=== PATIENT | female | born 1985 | race Hispanic/Latino ===

== ENCOUNTER 2024-08-04 17:01 | Emergency (ER) | payer SELFPAY ==
[~2024-08-04] VITALS: Ht 160 cm; Wt 108.4 kg
[2024-08-04 17:28] LABS: BASOPHILS # (AUTO) 0.01 K/uL (0.00-0.20); BASOPHILS % (AUTO) 0.1 % (0.0-5.0); HEMATOCRIT 38.3 % (36-48); IMMATURE GRANULOCYTE ABSOLUTE 0.05 K/uL (0-1); LYMPHOCYTES # (AUTO) 0.9 K/uL (1.0-4.8); MEAN CORPUSCULAR HEMOGLOBIN 26.6 pg (27.0-33.0); MEAN CORPUSCULAR HGB CONC 32.9 g/dL (32.0-36.0); MONOCYTES # (AUTO) 0.5 K/uL (0.1-1.0); MONOCYTES % (AUTO) 4.4 % (3.0-13.0); NEUTROPHILS # (AUTO) 10.2 K/uL (1.8-7.7); NEUTROPHILS % (AUTO) 87.1 % (40.0-77.0); PLATELET COUNT (AUTO) 221 K/uL (130-400); RED BLOOD CELL COUNT(AUTO) 4.73 MIL/uL (4.00-5.50); RED CELL DISTRIBUTION WIDTH 13.9 % (11.0-15.5); WHITE BLOOD COUNT (AUTO) 11.7 K/uL (4.8-10.8)
[2024-08-04 17:43] LABS: SARS-CoV-2, RNA, NAAT NEGATIVE SARS CoV-2 (NEGATIVE)
[2024-08-04 17:48] LABS: INFLUENZA TYPE A Negative For Type A (NEGATIVE); INFLUENZA TYPE B Negative For Type B (NEGATIVE)
[2024-08-04 17:51] LABS: CREATININE 0.8 mg/dL (0.5-1.0)
[2024-08-04 17:55] LABS: POTASSIUM 2.8 mmol/L (3.5-5.1)
[2024-08-04] MEDS: ondanSETRON 4MG INJ IVP ONE (19:13)
[2024-08-04] MEDS: acetaMINOPHEN 500 MG TABLET PO SCH (19:13)
[2024-08-04] MEDS: PoTASSium BIcarbonate/CIT AC 25 MEQ TABLET.EFF PO SCH (19:14)
[2024-08-04] MEDS: [UNRECOGNIZED DRUG - OTHER] IV SCH (19:14)
[2024-08-04 21:11] LABS: APPEARANCE,URINE CLEAR (CLEAR); BILIRUBIN,URINE NEGATIVE (NEGATIVE); COLOR,URINE LIGHT-YELLOW (YELLOW); GLUCOSE, URINE (UA) NEGATIVE (NEGATIVE); KETONES,URINE 20 mg/dL (NEGATIVE); LEUKOCYTE ESTERASE ,URINE NEGATIVE Leu/uL (NEGATIVE); NITRATE,URINE NEGATIVE (NEGATIVE); PH,URINE 6.5 (5.0-8.0); PROTEIN,URINE 20 mg/dL (NEGATIVE); UROBILINOGEN,URINE 0.2 mg/dL (0.2-1.0)
[2024-08-04 21:17] LABS: ADD UA MICROSCOPIC YES
[2024-08-04 21:18] LABS: HCG,QUALITATIVE URINE NEGATIVE (NEGATIVE)
[2024-08-04 21:20] LABS: BACTERIA,URINE RARE /HPF (None Seen); MUCUS,URINE RARE LPF (None Seen); SQUAMOUS EPITHELIAL CELL,UR RARE /HPF (0-2)
[2024-08-04 21:27] VITALS: TEMP 100.2
[2024-08-04] MEDS ORDERED: ONDA-243 PO (23:03)
[2024-08-04] MEDS ORDERED: CIPR500S4 PO (23:03)
[2024-08-04] MEDS ORDERED: METR-172 PO (23:03)
[2024-08-04] MEDS: metRONIDazole 500 MG TABLET PO SCH (23:16)
[2024-08-04] MEDS: ketOROlac 15MG/ML VIAL (15MG/ML) IV ONE (23:17)
[2024-08-04 23:29] VITALS: BP 112/65; PULSE 93; RESP 18; TEMP 99; O2SAT 96
== END 2024-08-04 23:30 | disposition home or self-care (01) ==
LOC: EDH 17:01
DX: K52.9 Noninfective gastroenteritis and colitis, unspecified (principal); E87.6 Hypokalemia; E86.0 Dehydration; K21.9 Gastro-esophageal reflux disease without esophagitis; E11.9 Type 2 diabetes mellitus without complications; E66.9 Obesity, unspecified; Z20.822 Contact with and (suspected) exposure to COVID-19; Z79.899 Other long term (current) drug therapy
CPT/HCPCS: 99285; 74176; 96374; 87635; 96361; 96375; 82550; 84484; 80048; 85025; 87040 ×2; 87880; 87804 ×2; 83605; 81001; 81025; 36415; J7030; J2405; J1885

== ENCOUNTER 2025-05-13 23:21 | Inpatient (IN) | payer BC ==
[~2025-05-13] VITALS: Ht 160 cm; Wt 98.5 kg
[~2025-05-13 23:21] MED LIST: CIPR500S4 PO; METR-172 PO; ONDA-243 PO
--- NOTE | 2025-05-13 23:35 | NUR ---
PT CARE ASSUMED AT THIS TIME
[2025-05-14] VITALS (7 sets, daily range): BP systolic 120–155; BP diastolic 62–98; PULSE 63–76; RESP 18–20; TEMP 97.6–99.5; O2SAT 95–98
[2025-05-14 00:10] LABS: IMMATURE GRANULOCYTE ABSOLUTE 0.07 K/uL (0-1); NUCLEATED RED BLOOD CELLS 0.0 % (0.0-0.19); PLATELET COUNT (AUTO) 308 K/uL (130-400); RED BLOOD CELL COUNT(AUTO) 4.61 MIL/uL (4.00-5.50); RED CELL DISTRIBUTION WIDTH 14.2 % (11.0-15.5); WHITE BLOOD COUNT (AUTO) 14.4 K/uL (4.8-10.8)
[2025-05-14] MEDS: LACTATED RINGERS 1000ML IV STA ×2 (00:13→02:24)
[2025-05-14 00:21] LABS: CREATININE 0.6 mg/dL (0.5-1.0); GLOMERULAR FILTR. RATE CALC 116.0 mL/min (>90); GLUCOSE,RANDOM 153.0 mg/dL (70-105); SODIUM SERUM 135.0 mmol/L (136-145); UREA NITROGEN, BLOOD 9.0 mg/dL (7-18)
--- NOTE | 2025-05-14 00:22 | ERN ---
General Chief Complaint: Abdominal Pain Stated Complaint: ABD PAIN N/V Time Seen by MD: 23:23 Source: patient History of Present Illness Initial Comments Patient comes in with abdominal pain. She had the same pain earlier this week and was seen in the hospital diagnosed with a ovarian cyst. The pain did improve but now it came back with a vengeance yesterday and today. The pain is substernal and comes and goes in waves. It is associated now with nausea and vomiting. Patient has been unable to keep anything down for the entire day and has had emesis times 12. She has not passed gas. She has not urinated. Prior surgical history is cholecystectomy and two C-sections. No fevers but positive chills Allergies: Coded Allergies: No Known Drug Allergies (Unverified Allergy, Unknown, 08/04/24) Home Meds Active Scripts Metronidazole (Metronidazole) 500 Mg Tablet, 1 TAB PO TID for 10 Days, #30 TAB 0 Refills Prov:TYLER WAGNER [employer] 08/04/24 Ciprofloxacin (Cipro) 500 Mg/5 Ml Briana.mc.rec, 500 MG PO BID for 7 Days, #14 TAB 0 Refills Prov:TYLER WAGNER [employer] 08/04/24 Ondansetron (Ondansetron Odt) 4 Mg Tab.rapdis, 4 MG PO Q6HPRN PRN for nausea, #15 TAB 0 Refills Prov:TYLER WAGNER [employer] 08/04/24 Past Medical History Past Medical History: Diabetes-Type II, GERD, Other Past Surgical History: Cholecystectomy, Social History Social History: Negative, Lives with family Female( History) LMP: Apr 17, 2025 Constitutional: (+) chills EENTM: (-) eye pain, (-) blurred vision, (-) tearing, (-) double vision, (-) ear pain, (-) ear discharge, (-) nose pain, (-) nose congestion, (-) throat pain, (-) Throat swelling, (-) mouth pain, (-) tooth pain, (-) mouth swelling, (-) other documentation Respiratory: (-) cough, (-) orthopnea, (-) short of breath, (-) stridor, (-) wheezing, (-) other documentation Cardiovascular: (-) chest pain, (-) edema, (-) palpitations, (-) syncope, (-) dyspnea on exertion, (-) other documentation Gastrointestinal/Abdominal: (+) nausea, (+) vomiting, (+) abdominal pain Genitourinary: (-) vaginal discharge, (-) vaginal bleeding, (-) dysuria, (-) frequency, (-) hematuria, (-) pain, (-) other documentation Musculoskeletal: (-) Neck pain, (-) back pain, (-) Flank Pain, (-) joint pain, (-) joint swelling, (-) muscle pain, (-) muscle stiffness, (-) gout, (-) other documentation Skin: (-) laceration, (-) contusion, (-) abrasion, (-) abscess, (-) rash, (-) change in color, (-) change in hair, (-) change in nails, (-) diaphoresis, (-) dryness, (-) other documentation Neuro: (-) altered mental status, (-) headache, (-) syncope, (-) paralysis, (-) numbness, (-) seizure, (-) pre-existing deficit, (-) tremors, (-) weakness, (-) dizziness, (-) slurred speech, (-) vertigo, (-) other documentation Physical Exam General Appearance: (+) moderate distress Orientation: (+) alert, (+) oriented x 3 Head/Face Trauma: No Eye: bilateral eye normal inspection, bilateral eye PERRL, bilateral eye EOMI Ear, Nose, Throat: (+) hearing grossly normal, (+) normal ENT inspection, (+) moist mucous membraine Neck: (+) normal inspection, (+) supple, (+) full range of motion, (+) no JVD Respiratory: (+) chest non-tender, (+) lungs clear, (+) well ventilated Heart: (+) regular, (+) no gallop Vascular: (+) no edema, (+) normal peripheral pulse, (+) no JVD Gastrointestinal: (+) soft, (+) bowel sound present, (+) tender, (+) rebound Breast Exam: (-) normal breast exam, (-) breast pain, (-) breast lump, (-) nipple discharge, (-) deferred, (-) other documentation Results Laboratory and Microbiology Lab and Micro Result Laboratory Tests Test 05/13/25 23:46 05/14/25 01:23 White Blood Count 14.4 K/uL (4.8-10.8) H Red Blood Count 4.61 MIL/uL (4.00-5.50) Hemoglobin 12.4 g/dL (12.0-16.0) Hematocrit 37.9 % (36-48) Mean Corpuscular Volume 82.2 fL (79-99) Mean Corpuscular Hemoglobin 26.9 pg (27.0-33.0) L Mean Corpuscular Hemoglobin Concent 32.7 g/dL (32.0-36.0) Red Cell Distribution Width 14.2 % (11.0-15.5) Platelet Count 308 K/uL (130-400) Mean Platelet Volume 10.0 fL (7.5-10.5) Immature Granulocyte % (Auto) 0.5 % (0-1) Neutrophils (%) (Auto) 84.7 % (40.0-77.0) H Lymphocytes (%) (Auto) 12.0 % (21.0-51.0) L Monocytes (%) (Auto) 2.6 % (3.0-13.0) L Eosinophils (%) (Auto) 0.1 % (0.0-8.0) Basophils (%) (Auto) 0.1 % (0.0-5.0) Neutrophils # (Auto) 12.2 K/uL (1.8-7.7) H Lymphocytes # (Auto) 1.7 K/uL (1.0-4.8) Monocytes # (Auto) 0.4 K/uL (0.1-1.0) Eosinophils # (Auto) 0.02 K/uL (0.00-0.70) Basophils # (Auto) 0.02 K/uL (0.00-0.20) Absolute Immature Granulocyte (auto 0.07 K/uL (0-1) Nucleated Red Blood Cells 0.0 % (0.0-0.19) Sodium Level 135 mmol/L (136-145) L Potassium Level 3.6 mmol/L (3.5-5.1) Chloride Level 99 mmol/L (101-111) L Carbon Dioxide Level 28 mmol/L (21-32) Blood Urea Nitrogen 9 mg/dL (7-18) Creatinine 0.6 mg/dL (0.5-1.0) Glomerular Filtration Rate Calc 116 mL/min (>90) Random Glucose 153 mg/dL (70-105) H Lactic Acid Level 1.9 mmol/L (0.8-2.5) Total Calcium 9.1 mg/dL (8.5-10.1) Total Bilirubin 0.4 mg/dL (0.2-1.0) Aspartate Amino Transf (AST/SGOT) 18 U/L (10-37) Alanine Aminotransferase (ALT/SGPT) 39 U/L (12-78) Alkaline Phosphatase 109 U/L (50-136) Total Protein 7.8 g/dL (6.0-8.3) Albumin 3.7 g/dL (3.5-5.0) Urine Color LIGHT-YELLOW (YELLOW) Urine Appearance CLEAR (CLEAR) Urine pH 8.5 (5.0-8.0) H Urine Specific Ross 1.022 (1.001-1.031) Urine Protein 10 mg/dL (NEGATIVE) H Urine Glucose (UA) NEGATIVE mg/dL (NEGATIVE) Urine Ketones 60 mg/dL (NEGATIVE) H Urine Occult Blood NEGATIVE (NEGATIVE) Urine Nitrate NEGATIVE (NEGATIVE) Urine Bilirubin NEGATIVE mg/dL (NEGATIVE) Urine Urobilinogen 0.2 mg/dL (0.2-1.0) Urine Leukocyte Esterase NEGATIVE Alonso/uL Urine RBC 11-25 /HPF (0-1) H Urine WBC 2-5 /HPF (0-1) H Urine Squamous Epithelial Cells RARE /HPF (0-2) Urine Bacteria None /HPF (None Seen) Urine HCG, Qualitative NEGATIVE (NEGATIVE) MDM MDM: Differential diagnosis: Small-bowel obstruction, ureteral stone, UTI, dehydration, gastroenteritis Rationale: Tests considered and ordered secondary to shared decision making include: Previous outside records reviewed: Old ER visits. Risk of complication and/or morbidity or mortality of patient management: None Medications-Per medication reconciliation Need for hospitalization: Patient does meet criteria for hospitalization. Need for emergency major/minor surgery: No There are no social concerns with this patient. Prescription drug management Prescriptions will include symptomatic care Patient's prior external medical records from other ER visits were reviewed by me as indicated. Prior testing and results from previous visits were reviewed. Prior tests were taken into account with medical decision making and resource utilization, independent historian/historians were used to obtain complete medical history. I independently interpreted the test that were performed, results were reviewed by me and considered findings on radiology if ordered. Patient's urine analysis is negative for infection. CBC shows an elevated white blood cell count chemistry panel shows dehydration as does the urine analysis. CT scan shows possible inflammation surrounding the duodenum as well as a transition in bowel thickness at the junction of the 4th portion of the duodenum and the jejunostomy. While in the CT scan the patient required an additional dose of Zofran. The patient currently can not taken any liquids I am admitting her for dehydration and possible small bowel obstruction. Discussed the patient with the hospitalist and he agrees. ED Course Orders Procedure Category Date Status Time 12 Lead Ekg Tracing- EKG 05/13/25 Logged Technical 23:56 Comprehensive LAB 05/13/25 Complete Metabolic Panel 23:56 Cbc With Differential LAB 05/13/25 Complete 23:56 Lactic Acid LAB 05/13/25 Complete 23:56 ,Urine Test LAB 05/13/25 Complete 23:56 Urinalysis Profile LAB 05/13/25 Complete 23:56 Ct Abdomen/Pelvis CT 05/13/25 Taken W/Wo Contras 23:56 Ondansetron 4mg Inj PHA 05/14/25 Complete (Zofran 4mg Inj) 00:00 Lactated Ringers PHA 05/13/25 Complete 1000ml (Lactated 23:56 Morphine 2mg Syg PHA 05/14/25 Complete (Morphine 2mg Syg) 00:00 Lactated Ringers PHA 05/14/25 Complete 1000ml (Lactated 01:19 Iohexol (Omnipaque) PHA 05/14/25 Complete 01:26 Ondansetron 4mg Inj PHA 05/14/25 Complete (Zofran 4mg Inj) 02:30 Morphine 2mg Syg PHA 05/14/25 Complete (Morphine 2mg Syg) 03:00 Current Medications Medications (Trade) Dose Ordered Sig/Gisela Route PRN Reason Start Time Stop Time Status Last Admin Dose Admin Iohexol (Omnipaque) 75 ml STK-MED ONCE IV 05/14/25 01:26 05/14/25 01:27 DC Lactated Ringer's (Lactated Ringers 1000ml) 1,000 ml BOLUS STAT IV 05/14/25 01:19 05/14/25 01:20 DC 05/14/25 02:24 Lactated Ringer's (Lactated Ringers 1000ml) 1,000 ml BOLUS STAT IV 05/13/25 23:56 05/14/25 00:00 DC 05/14/25 00:13 Morphine Sulfate (morPHINE 2MG SYG) 2 mg ONCE ONCE IVP 05/14/25 00:00 05/14/25 00:01 DC 05/14/25 00:09 Morphine Sulfate (morPHINE 2MG SYG) 2 mg ONCE ONCE IVP 05/14/25 03:00 05/14/25 03:01 DC 05/14/25 02:50 Ondansetron HCl (zoFRAN 4MG INJ) 4 mg ONCE ONCE IVP 05/14/25 00:00 05/14/25 00:01 DC 05/14/25 00:08 Ondansetron HCl (zoFRAN 4MG INJ) 4 mg ONCE ONCE IVP 05/14/25 02:30 05/14/25 02:31 DC 05/14/25 02:24 Vital Signs Date Time Temp Pulse Resp B/P (MAP) Pulse Ox O2 Delivery O2 Flow Rate FiO2 05/13/25 23:56 97.7 70 17 143/70 98 Room Air* 0 21 05/13/25 23:22 97.9 73 20 160/89 99 Room Air DX & DISP Disposition: Inpatient Departure Impression: Primary Impression: Acute gastroenteritis Additional Impressions: Dehydration, Small bowel obstruction Condition: Stable Referrals: NONE (PCP) MARIPOSA URIAS MD May 14, 2025 00:22
[2025-05-14 00:26] LABS: ASPARTATE AMINOTRANSFERASE 18.0 U/L (10-37); TOTAL PROTEIN, SERUM 7.8 g/dL (6.0-8.3)
[2025-05-14] MEDS ORDERED: IOHEXOL-350 75 ML VIAL IV ONE (01:26)
[2025-05-14 01:34] LABS: APPEARANCE,URINE CLEAR (CLEAR); GLUCOSE, URINE (UA) NEGATIVE (NEGATIVE); LEUKOCYTE ESTERASE ,URINE NEGATIVE Leu/uL (NEGATIVE); NITRATE,URINE NEGATIVE (NEGATIVE); OCCULT BLOOD,URINE NEGATIVE (NEGATIVE)
[2025-05-14 01:35] LABS: ADD UA MICROSCOPIC YES
[2025-05-14 01:40] LABS: SQUAMOUS EPITHELIAL CELL,UR RARE /HPF (0-2)
[2025-05-14 01:57] LABS: HCG,QUALITATIVE URINE NEGATIVE (NEGATIVE)
--- NOTE | 2025-05-14 04:11 | HP ---
History of Present Illness Reason for Visit: abdominal pain History of Present Illness Ms. Pulido is a 39-year-old female that was seen and examined today on 05/14/2025. Patient is a good historian of personal health. Patient states that she came to the emergency department with a chief complaint of abdominal pain. Onset was one week ago. Location is bilateral upper quadrants. Duration is on and off. Character is described as a burning pain or a knot in the stomach. There was no alleviating factors. Symptoms are aggravated by eating. Patient reports associated nausea and vomiting times 15 episodes. Today in the emergency department WBCs 14.4, left shift neutrophils 84.7%, urinalysis unremarkable, chemistry unremarkable, CT of abdomen and pelvis is pending radiology report although preliminary read by emergency physician is suspicious for small bowel obstruction. For this reason emergency room request that patient be admitted. If CT is positive for small-bowel obstruction we will consider inserting NG tube and placing patient on low intermittent wall suction as well as consult for General surgery Service Past Medical History ADDITIONAL PAST MEDICAL HISTORY: [Denies] SOCIAL HISTORY: [Negative for tobacco use. Patient drinks alcohol once a month usually 6-8 beers that are 12 oz each, patient admits to daily marijuana use. Patient denies any other illegal drug use. Patient is typically independent of all her ADLs. Patient denies difficulty paying her bills.] SURGICAL HISTORY: [Cholecystectomy, section] Review of Systems General: No Fever, No Chills, No Night Sweats, No Fatigue, No Malaise, No Appetite, No Other HEENT: No Head Aches, No Visual Changes, No Eye Pain, No Ear Pain, No Dysphasia, No Sinus Congestion, No Post Nasal Drip, No Sore Throat, No Other Pulmonary: No Dyspnea, No Cough, No Pleuritic Chest Pain, No Other Cardiovascular: No: Chest Pain, Palpitations, Orthopnea, Paroxysmal Noc. Dyspnea, Edema, Lt Headedness, Other Gastrointestinal: Nausea, Vomiting, Abdominal Pain; No: Diarrhea, Constipation, Melena, Hematochezia, Other Genitourinary: No Dysuria, No Frequency, No Incontinence, No Hematuria, No Retention, No Other Musculoskeletal: No: other, neck pain, shoulder pain, arm pain, back pain, hand pain, leg pain, foot pain Skin: No Urticaria, No Rash, No Other Neurological: No: Weakness, Numbness, Incoordination, Change in speech, Confusion, Seizures, Other Allergies: Coded Allergies: No Known Drug Allergies (Unverified Allergy, Unknown, 08/04/24) Scheduled Ciprofloxacin (Cipro), 500 MG PO BID Metronidazole (Metronidazole), 1 TAB PO TID Scheduled PRN Ondansetron (Ondansetron Odt), 4 MG PO Q6HPRN PRN for nausea Exam Vital Signs Vital Signs Date Time Temp Pulse Resp B/P (MAP) Pulse Ox O2 Delivery O2 Flow Rate FiO2 05/13/25 23:56 97.7 70 17 143/70 98 Room Air* 0 21 General Appearance: Alert, Oriented X3, Cooperative, mild distress HEENT: Atraumatic, EOMI Respiratory: Clear to auscultation, Normal air movement, NL respiratory effort Cardiovascular: Regular rate, Regular rhythm, Normal S1, Normal S2 Abdominal: Normal bowel sounds, Soft, No tenderness Extremities: No edema Skin: No significant lesion Neuro: Normal gait, Normal speech, Sensation intact, Cranial nerves 3-12 NL Psych/Mental Status: Mental status NL, Mood NL, Thoughts/Content NL Assessment/Plan ASSESSMENT: [ Intractable abdominal pain, POA Intractable nausea and vomiting, POA Suspected small bowel obstruction, POA Suspected cannabinoid hyperemesis syndrome, POA] PLAN: [ Admit patient to medical floor as inpatient status. Keep patient NPO. Lactated Ringer's at 100 mL/HR. As-needed Zofran. Phenergan 25 mg IM times 1. As needed analgesia with morphine. Follow up with the CT of abdomen and pelvis results. Consider inserting NG tube, intermittent wall suction, and general surgery consult if findings positive for small bowel obstruction. Consult patient on marijuana use cessation. GI prophylaxis, famotidine DVT prophylaxis, Alex's and SCDs. Consider initiating anticoagulation if CT findings are negative. ADVANCED CARE PLANNING 1. Which of the following were discussed? Hospice Care - Yes Therapeutic options - yes Advance Directives - Yes - patient states she does not have any advance directives in place at this time, however her sister, Irene can make decisions for her if she becomes unable. Other discussions - patient wishes to remain a full code at this time 2. Discussed with who? Patient 3. Voluntary nature of this service was explained to the patient? Yes 4. Amount of time spent - ___16 minutes____ 5. Reviewed by Physician? (if this service was performed by NPP) Yes This document was generated in part using voice recognition software, occasional wrong word or sound alike substitutions may have occurred due to the inherent limitations of voice recognition software. Read the chart carefully and recognize using context, where the substitutions have occurred. Although every effort was made to edit the content, radiology transcriptionist and typing errors may occur ATTESTATION BY PHYSICIAN I have seen and examined the patient. I reviewed the documentation, medical decision making, and treatment plan as noted by the mid-level provider above. I agree with the findings and plan of care. [facility] May 14, 2025 04:10
[2025-05-14] MEDS ORDERED: PROMETHAZINE HCL 25 MG/ML 1ML AMPULE IM ONE (04:30)
--- NOTE | 2025-05-14 04:55 | NUR ---
ATTEMPT TO GIVE REPORT AT THIS TIME. NOT SUCCESSFUL.
--- NOTE | 2025-05-14 05:00 | NUR ---
REPORT GIVEN TO DEBBY ORTIZ AT THIS TIME
[2025-05-14] MEDS: LACTATED RINGERS 1000ML 1,000 ML IV SCH (05:06)
--- NOTE | 2025-05-14 08:07 | EKG ---
[facility] Test Date: 2025-05-14 Test Time: 00:04:57 Pat Name: FARTUN BANUELOS Department: [facility] Room: 320 1 Gender: F Registered Client Associate: [id number] : 1985 Requested By: MARIPOSA URIAS Order Number: [id number] Reading MD: Azael Pinto Measurements Intervals [place] Rate: 66 P: 29 ID: [id number] QRS: 31 QRSD: 68 T: 32 QT: 420 QTc: 439 Interpretive Statements Sinus rhythm Low voltage, precordial leads No previous ECG available for comparison Electronically Signed On 05-14-2025 16:04:21 CDT by Azael Pinto Please click the below link to view image of tracing.
[2025-05-14] MEDS: FAMOTIDINE 20MG VIAL IV SCH (08:49)
--- NOTE | 2025-05-14 10:20 | NUR ---
ROUND DR. ANUJA PETERS AT BEDSIDE. ANSWERED PTS QUESTIONS. INFORMED PT WE ARE WAITING FOR CT OF ABD/ PELVIS FOR ANY FURTHER ACTIONS. GAVE OKAY TO GIVE ICE CHIPS FOR NOW. NO FURTHER ORDERS AT THIS TIME.
[2025-05-14 10:51] LABS: AMPHET/METH SCREEN,URINE NEGATIVE (NEGATIVE); BARBITURATE SCREEN, URINE NEGATIVE (NEGATIVE); CANNABINOID SCREEN,URINE POSITIVE (NEGATIVE); COCAINE SCREEN,URINE NEGATIVE (NEGATIVE)
--- NOTE | 2025-05-14 17:50 | NUR ---
INITIAL/DCP HOME Met w pt this afternoon to discuss dcp. Pt lives w her parents/children & sister. Prior to admission pt was independent w ambulation and ADLs. She does not own any DME or receive services. Pt does not have a PCP. Her preferred pharmacy is [facility]. Pt works fulltime and is able to drive herself where needed. Discharge goal is to return home. She denies any insecurities with food, alf, and/or utilities. Addendum: 05/14/25 at 1752 by ANNY GOLDBERG CM Amended: Links added.
--- NOTE | 2025-05-14 21:51 | HMCIMG ---
EXAM: CT Abdomen and Pelvis with and without IV contrast CLINICAL HISTORY: sbo TECHNIQUE: Axial computed tomography images of the abdomen and pelvis with and without intravenous contrast. CT scan performed according to ALARA. Automated exposure control used during exam. CONTRAST: with and without intravenous contrast. COMPARISON: CT images from August 04, 2024 FINDINGS: Lung bases are clear. Mild hepatomegaly; the right hepatic lobe measures up to 17.2 cm in the craniocaudal dimension. Hepatic steatosis. The gallbladder is surgically absent. Bilateral adrenal glands, spleen, and pancreas are within normal limits. Punctate nonobstructing calculus within the inferior pole of the right kidney. Kidneys are otherwise unremarkable. Bowel loops are normal in caliber without evidence of obstruction, ileus, or obvious bowel wall thickening. There is colonic diverticulosis without evidence for diverticulitis. The appendix is normal. Bladder and pelvic organs demonstrate appropriate CT appearances. There is no ascites or lymphadenopathy. Opacified abdominal and pelvic vessels are patent. There is no acute or suspicious osseous abnormality. IMPRESSION: 1. No acute intraabdominal or pelvic pathology. Please see above for additional details. /[place]
--- NOTE | 2025-05-14 23:59 | PN ---
[facility] PROGRESS NOTE Date of Service: May 14, 2025 Time of Service: 23:59 SUBJECTIVE: 05/15/25: The patient was examined at the bedside today. She reports persistent nausea and experienced approximately 10 episodes of vomiting yesterday, though no vomiting has occurred today. She describes epigastric abdominal pain, cramping in nature, with a sensation like a knot in her stomach. She remains NPO. The patient reports having a bowel movement yesterday. She typically experiences constipation but, over the past two weeks, has had intermittent nausea, vomiting, and episodes of diarrhea. She denies any history of alcohol use, hematochezia, hematemesis, melena. She was evaluated at [facility] last week for similar symptoms and was discharged with the diagnosis of vomiting and an ovarian cyst. She was discharged with prescriptions for dicyclomine and ondansetron (Zofran). She reports not eating for the first four days after discharge, then consuming light meals over the past two days, which she has not tolerated. She also has a chronic history of intermittent heartburn. She has insurance now about since a year but currently does not have a primary care provider. Laboratory findings today include WBC 14.4 with neutrophil predominance (84.7%), Sodium 135, Chloride 99, UA showed urine pH 8.5, positive ketones, and urine RBC 1125/hpf. CT abdomen and pelvis showed mild hepatomegaly with hepatic steatosis, surgically absent gallbladder and punctate nonobstructing calculus within inferior pole of the right kidney, colonic diverticulosis, otherwise negative. Plan is to continue IV fluids and maintain NPO status until the symptoms improves. REVIEW OF SYSTEMS CONSTITUTIONAL: Denies fevers, chills, or night sweats. No unintentional weight loss reported. NEUROLOGICAL: Denies headache, amaurosis fugax, motor weakness, sensory deficit, vertigo/spinning sensation, gait abnormalities, or tremors. ENT: No hearing loss, otalgia, otorrhea, rhinitis, rhinorrhea, hoarseness, or sore throat. CARDIOVASCULAR: Denies any exertional angina, dyspnea on exertion, orthopnea, paroxysmal nocturnal dyspnea, palpitations, life-threatening arrhythmias, claudication. PULMONARY: Denies any shortness of breath, cough, phlegm/sputum, hemoptysis, pleuritic chest pain. SLEEP: Denies morning headaches, daytime somnolence or napping. Denies d ifficulty falling asleep, staying asleep, waking from sleep. Denies knowledge of snoring. Gastrointestinal: Reports nausea, vomiting (10 episodes yesterday, none today), epigastric abdominal pain with cramping, intermittent diarrhea, constipation, and chronic heartburn. GENITOURINARY: Denies frequency, urgency, nocturia, hematuria or incontinence (Storage/Irritative symptoms.) Low urinary stream, straining to void, urinary intermittency or hesitancy, splitting of the voiding stream, terminal dribbling. PHYSICAL EXAM GENERAL APPEARANCE: The patient is awake, alert, and oriented, in no acute cardiopulmonary distress. HEENT: Face is symmetric. Pupils are equal and reactive. Extraocular movements are intact. NECK: Supple. No JVD. No thyromegaly. No submental, submandibular, pre- /postauricular, occipital or supraclavicular lymphadenopathy. CHEST: Normal chest expansion. No Telemetry. LUNGS: Absence of any rales, rhonchi or any wheezing. CARDIOVASCULAR: Regular. S1 and S2 normal. No appreciable rubs, murmurs or gallops. Abdomen: Soft, non-distended, with tenderness to palpation in the epigastric and supraumbilical regions; no rebound tenderness or guarding noted. : Deferred. No [place]. EXTREMITIES: Non-edematous and not cyanotic. No clubbing. Good capillary refill. SKIN: No skin breakdown. Vital Signs (last 8hr) Date Time Temp Pulse Resp B/P (MAP) Pulse Ox O2 Delivery O2 Flow Rate FiO2 05/14/25 20:00 95 Room Air* 0 21 05/14/25 19:00 99.5 71 20 129/68 95 Room Air 05/14/25 16:00 98.4 64 18 120/87 96 LABS: Laboratory: Test 05/14/25 10:24 05/14/25 08:57 05/14/25 01:23 05/13/25 23:46 Range/Units Urine Opiates Screen NEGATIVE NEGATIVE Urine Barbiturates Screen NEGATIVE NEGATIVE Urine Phencyclidine Screen NEGATIVE NEGATIVE Urine Amphetamines Screen NEGATIVE NEGATIVE Urine Benzodiazepines Screen NEGATIVE NEGATIVE Urine Cocaine Screen NEGATIVE NEGATIVE Urine Marijuana (THC) Screen POSITIVE H NEGATIVE Total Creatine Kinase 47 # 21-232 U/L Lipase 31 16-77 U/L Urine Color LIGHT-YELLOW YELLOW Urine Appearance CLEAR CLEAR Urine pH 8.5 H 5.0-8.0 Urine Specific [place] 1.022 1.001-1.031 Urine Protein 10 H NEGATIVE mg/dL Urine Glucose (UA) NEGATIVE NEGATIVE mg/dL Urine Ketones 60 H NEGATIVE mg/dL Urine Occult Blood NEGATIVE NEGATIVE Urine Nitrate NEGATIVE NEGATIVE Urine Bilirubin NEGATIVE NEGATIVE mg/dL Urine Urobilinogen 0.2 0.2-1.0 mg/dL Urine Leukocyte Esterase NEGATIVE NEGATIVE Alonso/uL Urine RBC 11-25 H 0-1 /HPF Urine WBC 2-5 H 0-1 /HPF Urine Squamous Epithelial Cells RARE 0-2 /HPF Urine Bacteria None None Seen /HPF Urine HCG, Qualitative NEGATIVE NEGATIVE White Blood Count 14.4 H 4.8-10.8 K/uL Red Blood Count 4.61 4.00-5.50 MIL/uL Hemoglobin 12.4 12.0-16.0 g/dL Hematocrit 37.9 36-48 % Mean Corpuscular Volume 82.2 79-99 fL Mean Corpuscular Hemoglobin 26.9 L 27.0-33.0 pg Mean Corpuscular Hemoglobin Concent 32.7 32.0-36.0 g/dL Red Cell Distribution Width 14.2 11.0-15.5 % Platelet Count 308 130-400 K/uL Mean Platelet Volume 10.0 7.5-10.5 fL Immature Granulocyte % (Auto) 0.5 0-1 % Neutrophils (%) (Auto) 84.7 H 40.0-77.0 % Lymphocytes (%) (Auto) 12.0 L 21.0-51.0 % Monocytes (%) (Auto) 2.6 L 3.0-13.0 % Eosinophils (%) (Auto) 0.1 0.0-8.0 % Basophils (%) (Auto) 0.1 0.0-5.0 % Neutrophils # (Auto) 12.2 H 1.8-7.7 K/uL Lymphocytes # (Auto) 1.7 1.0-4.8 K/uL Monocytes # (Auto) 0.4 0.1-1.0 K/uL Eosinophils # (Auto) 0.02 0.00-0.70 K/uL Basophils # (Auto) 0.02 0.00-0.20 K/uL Absolute Immature Granulocyte (auto 0.07 0-1 K/uL Nucleated Red Blood Cells 0.0 0.0-0.19 % Sodium Level 135 L 136-145 mmol/L Potassium Level 3.6 3.5-5.1 mmol/L Chloride Level 99 L 101-111 mmol/L Carbon Dioxide Level 28 21-32 mmol/L Blood Urea Nitrogen 9 7-18 mg/dL Creatinine 0.6 0.5-1.0 mg/dL Glomerular Filtration Rate Calc 116 >90 mL/min Random Glucose 153 H 70-105 mg/dL Lactic Acid Level 1.9 0.8-2.5 mmol/L Total Calcium 9.1 8.5-10.1 mg/dL Total Bilirubin 0.4 0.2-1.0 mg/dL Aspartate Amino Transf (AST/SGOT) 18 10-37 U/L Alanine Aminotransferase (ALT/SGPT) 39 12-78 U/L Alkaline Phosphatase 109 50-136 U/L Total Protein 7.8 6.0-8.3 g/dL Albumin 3.7 3.5-5.0 g/dL Current Medications Medications (Trade) Dose Ordered Sig/Gisela Route PRN Reason Start Time Stop Time Status Last Admin Dose Admin Acetaminophen (TYLenol 650MG SUPPOSITORY) 650 mg Q6H PRN RC MILD PAIN (1-3) 05/14/25 04:30 06/13/25 04:29 Enoxaparin Sodium (Lovenox) 30 mg DAILY SQ 05/15/25 09:00 06/14/25 08:59 Famotidine (Pepcid 20mg Vial) 20 mg DAILY IV 05/14/25 09:00 06/13/25 08:59 05/14/25 08:49 20 MG Hydralazine HCl (APRESOLine 20MG INJ) 10 mg Q6H PRN IV For:SBP above 160;DBP above 90 05/14/25 04:30 06/13/25 04:29 Lactated Ringer's 1,000 ml @ 100 mls/hr Q10H IV 05/14/25 04:30 06/13/25 04:29 05/14/25 16:29 100 MLS/HR Lactated Ringer's (Lactated Ringers 1000ml) 1,000 ml BOLUS STAT IV 05/14/25 01:19 05/14/25 01:20 DC 05/14/25 02:24 1,000 ML Lactated Ringer's (Lactated Ringers 1000ml) 1,000 ml BOLUS STAT IV 05/13/25 23:56 05/14/25 00:00 DC 05/14/25 00:13 1,000 ML Magnesium Sulfate 50 ml @ 0 mls/hr PROTOCOL PRN IV As needed 05/14/25 19:00 06/13/25 18:59 Morphine Sulfate (morPHINE 2MG SYG) 2 mg Q4H PRN IVP SEVERE PAIN (7-10) 05/14/25 04:30 05/21/25 04:29 05/14/25 12:56 2 MG Ondansetron HCl (zoFRAN 4MG INJ) 4 mg Q6H PRN IV NAUSEA/VOMITING 05/14/25 04:30 06/13/25 04:29 05/14/25 13:03 4 MG Potassium Chloride 100 ml @ 50 mls/hr AD PRN IV POTASSIUM PROTOCOL 05/14/25 19:00 06/13/25 18:59 05/14/25 18:46 50 MLS/HR DIAGNOSTICS / RADIOLOGY: [place] [address] IMAGING REPORT Signed PATIENT: FARTUN BANUELOS MR#: [id number] : 1985 SEX: F AGE: 39 LOCATION: [facility] ORDER 57 STATUS: ADM IN REPORT#: [id number] SERVICE 55 REASON: sbo ORDERING PHYSICIAN: MARIPOSA URIAS MD PROCEDURE: ABD PELWWO - CT ABDOMEN/PELVIS W/WO CONTRAS EXAM: CT Abdomen and Pelvis with and without IV contrast CLINICAL HISTORY: sbo TECHNIQUE: Axial computed tomography images of the abdomen and pelvis with and without intravenous contrast. CT scan performed according to ALARA. Automated exposure control used during exam. CONTRAST: with and without intravenous contrast. COMPARISON: CT images from August 04, 2024 FINDINGS: Lung bases are clear. Mild hepatomegaly; the right hepatic lobe measures up to 17.2 cm in the craniocaudal dimension. Hepatic steatosis. The gallbladder is surgically absent. Bilateral adrenal glands, spleen, and pancreas are within normal limits. Punctate nonobstructing calculus within the inferior pole of the right kidney. Kidneys are otherwise unremarkable. Bowel loops are normal in caliber without evidence of obstruction, ileus, or obvious bowel wall thickening. There is colonic diverticulosis without evidence for diverticulitis. The appendix is normal. Bladder and pelvic organs demonstrate appropriate CT appearances. There is no ascites or lymphadenopathy. Opacified abdominal and pelvic vessels are patent. There is no acute or suspicious osseous abnormality. IMPRESSION: 1. No acute intraabdominal or pelvic pathology. Please see above for additional details. /[place] DICTATED BY: KENDY WILLOUGHBY Jr., MD DATE: 05/14/252250 ELECTRONICALLY SIGNED BY: KENDY WILLOUGHBY Jr., MD DATE: 05/14/252250 ASSESSMENT: Possible infectious or inflammatory gastrointestinal process, POA Intractable nausea and vomiting, POA Colonic diverticulosis POA Hepatic steatosis POA Right nephrolithiasis POA Suspected cannabinoid hyperemesis syndrome, POA Class II obesity (BMI 38.5 kg/m) PLAN: The patient remains admitted on the medical surgical floor. Possible infectious or inflammatory gastrointestinal process, POA Intractable nausea and vomiting, POA * CT abdomen/pelvis negative for small bowel obstruction; notable for colonic diverticulosis, hepatic steatosis, and a punctate nonobstructing calculus in the inferior pole of the right kidney. * The patient did not tolerate ice chips, with worsening nausea following intake. Will maintain NPO status at present and re-evaluate tolerance tomorrow. * Continue intravenous fluid hydration with LR 100 cc/hour. * Ondansetron PRN for nausea. * Diagnostic workup initiated: ESR, CRP, fecal leukocytes, fecal lactoferrin, stool gastrointestinal pathogen PCR panel, stool H. pylori antigen, stool culture, and C. difficile toxin assay. Samples are yet to get collected. Follow up with the results when available. Suspected cannabinoid hyperemesis syndrome, POA * The patient reports occasional marijuana use for relief of pain and anxiety. She was counseled in detail regarding the potential long-term consequences and risks associated with marijuana use disorder. DVT prophylaxis: Lovenox 30 mg subQ daily. GI prophylaxis: Famotidine 20 mg daily IV Replace electrolytes as needed per protocol. P.r.n. medication: Zofran4 mg q.6 for nausea/vomiting, Tylenol 650 mg q.6 for mild pain, morphine q.4 for severe pain. The patient does not take any home medications. Given the patients leukocytosis, inflammatory markers will be obtained, and antibiotic therapy will be initiated if leukocytosis persists and clinical suspicion for infection remains. Dietary advancement to clear liquids will be considered once nausea improves. If symptoms persist, consultation with Gastroenterology and General Surgery will be considered for further evaluation. AM Labs: CBC, BMP, inflammatory markers, magnesium, phosphorus ATTESTATION BY PHYSICIAN I have seen and examined the patient. I reviewed the documentation, medical decision making, and treatment plan as noted by the resident provider above. I agree with the findings and plan of care. Nadir Morgan MD, MANALI MD May 14, 2025 23:59
[2025-05-15] VITALS (8 sets, daily range): BP systolic 121–155; BP diastolic 64–89; PULSE 60–86; RESP 19–20; TEMP 97.8–98.7; O2SAT 96–99
[2025-05-15 06:30] LABS: IMMATURE GRANULOCYTE ABSOLUTE 0.02 K/uL (0-1); NUCLEATED RED BLOOD CELLS 0.0 % (0.0-0.19); PLATELET COUNT (AUTO) 289 K/uL (130-400); RED BLOOD CELL COUNT(AUTO) 4.60 MIL/uL (4.00-5.50); RED CELL DISTRIBUTION WIDTH 14.4 % (11.0-15.5); WHITE BLOOD COUNT (AUTO) 9.1 K/uL (4.8-10.8)
[2025-05-15 06:38] LABS: CREATININE 0.8 mg/dL (0.5-1.0); GLOMERULAR FILTR. RATE CALC 95.0 mL/min (>90); GLUCOSE,RANDOM 92.0 mg/dL (70-105); PHOSPHORUS 2.9 mg/dL (2.5-4.9); SODIUM SERUM 141.0 mmol/L (136-145); UREA NITROGEN, BLOOD 8.0 mg/dL (7-18)
--- NOTE | 2025-05-15 09:10 | NUR ---
ABDOMINAL PAIN patient reporting abdominal pain 10/10, and shortness of breath. Epigastric pain and unrelieved by morphine. Dr. Randall notified about sudden pain and shortness of breath, per resident her and Dr. Hernandez will be rounding shortly to assess prior to ordering any treatments.
[2025-05-15] MEDS: PROMETHAZINE HCL 25 MG/ML 1ML AMPULE IM ONE (09:59)
[2025-05-15] MEDS: ENOXAPARIN SODIUM 30 MG/0.3 ML SQ SCH (10:07)
[2025-05-15] MEDS: MAGNESIUM 2GM PREMIX 50ML 50 ML IV PRN (10:08)
--- NOTE | 2025-05-15 10:38 | HMCIMG ---
EXAM: CR Chest, 1 View. CLINICAL HISTORY: SHORTNESS OF BREATH COMPARISON: None provided. FINDINGS: LUNGS: The lungs show no infiltrate or other acute finding. PLEURAL SPACES: No evidence of pleural effusion or pneumothorax. MEDIASTINUM: Cardiac size and mediastinal contours within normal limits. BONES: No aggressive appearing osseous lesion seen. IMPRESSION: No acute cardiopulmonary pathology is evident. /[place]
[2025-05-15] MEDS: DICYCLOMINE 20MG (10MG/ML) AMP IM ONE (11:30)
--- NOTE | 2025-05-15 11:36 | PN ---
[facility] PROGRESS NOTE Date of Service: May 15, 2025 Time of Service: 11:13 SUBJECTIVE: 05/14/25: The patient was examined at the bedside today. She reports persistent nausea and experienced approximately 10 episodes of vomiting yesterday, though no vomiting has occurred today. She describes epigastric abdominal pain, cramping in nature, with a sensation like a knot in her stomach. She remains NPO. The patient reports having a bowel movement yesterday. She typically experiences constipation but, over the past two weeks, has had intermittent nausea, vomiting, and episodes of diarrhea. She denies any history of alcohol use, hematochezia, hematemesis, melena. She was evaluated at [facility] last week for similar symptoms and was discharged with the diagnosis of vomiting and an ovarian cyst. She was discharged with prescriptions for dicyclomine and ondansetron (Zofran). She reports not eating for the first four days after discharge, then consuming light meals over the past two days, which she has not tolerated. She also has a chronic history of intermittent heartburn. She has insurance now about since a year but currently does not have a primary care provider. Laboratory findings today include WBC 14.4 with neutrophil predominance (84.7%), Sodium 135, Chloride 99, UA showed urine pH 8.5, positive ketones, and urine RBC 1125/hpf. CT abdomen and pelvis showed mild hepatomegaly with hepatic steatosis, surgically absent gallbladder and punctate nonobstructing calculus within inferior pole of the right kidney, colonic diverticulosis, otherwise negative. Plan is to continue IV fluids and maintain NPO status until the symptoms improves. 05.15.25: The patient was examined today in room no-320. She reports acute onset of epigastric pain described as cramping in nature. She has been NPO since Thursday and is currently not actively vomiting but has persistent nausea with frequent retching episodes that started around 7:00 a.m. today approximately 1 h our after symptom onset, she developed shortness of breath and sharp pain in the epigastrium. The patient appears to be in acute distress and is very uncomfortable. Initial treatment with morphine sulphate 2mg and Zofran 4mg at 7:20 a.m. provided no relief. Subsequently, promethazine 25mg IM and hydromorphone 0.5 mg were given, after which the pain subsided. A chest x-ray has been ordered to evaluate further, showed no evidence of pneumothorax. Blood pressure is 155/89 mm Hg, Labs: lipase-96, stool lactoferrin ADONIS- negative,Potassium-3.3 and Magnesium-1.7, Patient is on potassium and magnesium protocol for electrolyte replenishment Urine Marijuana- positive, Urine analysis revealed : urine ketones-60, RBC-11-25, WBC-2-5, Protein-10, PH-8.5. REVIEW OF SYSTEMS CONSTITUTIONAL: Denies fevers, chills, or night sweats. No unintentional weight loss reported. NEUROLOGICAL: Denies headache, amaurosis fugax, motor weakness, sensory deficit, vertigo/spinning sensation, gait abnormalities, or tremors. ENT: No hearing loss, otalgia, otorrhea, rhinitis, rhinorrhea, hoarseness, or sore throat. CARDIOVASCULAR: Denies any exertional angina, dyspnea on exertion, orthopnea, paroxysmal nocturnal dyspnea, palpitations, life-threatening arrhythmias, claudication. PULMONARY: Denies any shortness of breath, cough, phlegm/sputum, hemoptysis, pleuritic chest pain. SLEEP: Denies morning headaches, daytime somnolence or napping. Denies difficulty falling asleep, staying asleep, waking from sleep. Denies knowledge of snoring. Gastrointestinal: Reports nausea, vomiting (several episodes), epigastric abdominal pain with cramping, NPO since 05.13.25 and chronic heartburn. GENITOURINARY: Denies frequency, urgency, nocturia, hematuria or incontinence (Storage/Irritative symptoms.) Low urinary stream, straining to void, urinary intermittency or hesitancy, splitting of the voiding stream, terminal dribbling. PHYSICAL EXAM GENERAL APPEARANCE: The patient is awake, alert, and oriented, in no acute cardiopulmonary distress. HEENT: Face is symmetric. Pupils are equal and reactive. Extraocular movements are intact. NECK: Supple. No JVD. No thyromegaly. No submental, submandibular, pre- /postauricular, occipital or supraclavicular lymphadenopathy. CHEST: Normal chest expansion. No Telemetry. LUNGS: Absence of any rales, rhonchi or any wheezing. CARDIOVASCULAR: Regular. S1 and S2 normal. No appreciable rubs, murmurs or gallops. Abdomen: Soft, non-distended, with tenderness to palpation in the epigastric and supraumbilical regions; no rebound tenderness or guarding noted. : Deferred. No [place]. EXTREMITIES: Non-edematous and not cyanotic. No clubbing. Good capillary refill. SKIN: No skin breakdown. Vital Signs (last 8hr) Date Time Temp Pulse Resp B/P (MAP) Pulse Ox O2 Delivery O2 Flow Rate FiO2 05/15/25 08:00 98.2 79 19 155/89 100 Room Air 21 05/15/25 04:00 98.2 86 20 133/69 98 Room Air LABS: Laboratory: Test 05/15/25 06:04 05/15/25 04:55 05/14/25 10:24 05/14/25 08:57 Range/Units White Blood Count 9.1 4.8-10.8 K/uL Red Blood Count 4.60 4.00-5.50 MIL/uL Hemoglobin 12.6 12.0-16.0 g/dL Hematocrit 37.9 36-48 % Mean Corpuscular Volume 82.4 79-99 fL Mean Corpuscular Hemoglobin 27.4 27.0-33.0 pg Mean Corpuscular Hemoglobin Concent 33.2 32.0-36.0 g/dL Red Cell Distribution Width 14.4 11.0-15.5 % Platelet Count 289 130-400 K/uL Mean Platelet Volume 10.1 7.5-10.5 fL Immature Granulocyte % (Auto) 0.2 0-1 % Neutrophils (%) (Auto) 56.2 40.0-77.0 % Lymphocytes (%) (Auto) 35.8 21.0-51.0 % Monocytes (%) (Auto) 6.8 3.0-13.0 % Eosinophils (%) (Auto) 0.8 0.0-8.0 % Basophils (%) (Auto) 0.2 0.0-5.0 % Neutrophils # (Auto) 5.1 1.8-7.7 K/uL Lymphocytes # (Auto) 3.2 1.0-4.8 K/uL Monocytes # (Auto) 0.6 0.1-1.0 K/uL Eosinophils # (Auto) 0.07 0.00-0.70 K/uL Basophils # (Auto) 0.02 0.00-0.20 K/uL Absolute Immature Granulocyte (auto 0.02 0-1 K/uL Nucleated Red Blood Cells 0.0 0.0-0.19 % Sodium Level 141 136-145 mmol/L Potassium Level 3.3 L 3.5-5.1 mmol/L Chloride Level 104 101-111 mmol/L Carbon Dioxide Level 28 21-32 mmol/L Blood Urea Nitrogen 8 7-18 mg/dL Creatinine 0.8 0.5-1.0 mg/dL Glomerular Filtration Rate Calc 95 >90 mL/min Random Glucose 92 70-105 mg/dL Total Calcium 9.0 8.5-10.1 mg/dL Phosphorus Level 2.9 2.5-4.9 mg/dL Magnesium Level 1.70 L 1.80-2.40 mg/dL C-Reactive Protein, Quantitative 2.20 0.5-3.0 mg/L Lipase 96 H 16-77 U/L Stool Lactoferrin (ADONIS) NEGATIVE NEGATIVE Urine Opiates Screen NEGATIVE NEGATIVE Urine Barbiturates Screen NEGATIVE NEGATIVE Urine Phencyclidine Screen NEGATIVE NEGATIVE Urine Amphetamines Screen NEGATIVE NEGATIVE Urine Benzodiazepines Screen NEGATIVE NEGATIVE Urine Cocaine Screen NEGATIVE NEGATIVE Urine Marijuana (THC) Screen POSITIVE H NEGATIVE Total Creatine Kinase 47 # 21-232 U/L Test 05/14/25 01:23 05/13/25 23:46 Range/Units Urine Color LIGHT-YELLOW YELLOW Urine Appearance CLEAR CLEAR Urine pH 8.5 H 5.0-8.0 Urine Specific [place] 1.022 1.001-1.031 Urine Protein 10 H NEGATIVE mg/dL Urine Glucose (UA) NEGATIVE NEGATIVE mg/dL Urine Ketones 60 H NEGATIVE mg/dL Urine Occult Blood NEGATIVE NEGATIVE Urine Nitrate NEGATIVE NEGATIVE Urine Bilirubin NEGATIVE NEGATIVE mg/dL Urine Urobilinogen 0.2 0.2-1.0 mg/dL Urine Leukocyte Esterase NEGATIVE NEGATIVE Alonso/uL Urine RBC 11-25 H 0-1 /HPF Urine WBC 2-5 H 0-1 /HPF Urine Squamous Epithelial Cells RARE 0-2 /HPF Urine Bacteria None None Seen /HPF Urine HCG, Qualitative NEGATIVE NEGATIVE Lactic Acid Level 1.9 0.8-2.5 mmol/L Total Bilirubin 0.4 0.2-1.0 mg/dL Aspartate Amino Transf (AST/SGOT) 18 10-37 U/L Alanine Aminotransferase (ALT/SGPT) 39 12-78 U/L Alkaline Phosphatase 109 50-136 U/L Total Protein 7.8 6.0-8.3 g/dL Albumin 3.7 3.5-5.0 g/dL Current Medications Medications (Trade) Dose Ordered Sig/Gisela Route PRN Reason Start Time Stop Time Status Last Admin Dose Admin Acetaminophen (TYLenol 650MG SUPPOSITORY) 650 mg Q6H PRN RC MILD PAIN (1-3) 05/14/25 04:30 06/13/25 04:29 Enoxaparin Sodium (Lovenox) 30 mg DAILY SQ 05/15/25 09:00 06/14/25 08:59 05/15/25 10:07 30 MG Famotidine (Pepcid 20mg Vial) 20 mg DAILY IV 05/14/25 09:00 05/15/25 11:11 DC 05/15/25 07:21 20 MG Hydralazine HCl (APRESOLine 20MG INJ) 10 mg Q6H PRN IV For:SBP above 160;DBP above 90 05/14/25 04:30 06/13/25 04:29 Lactated Ringer's 1,000 ml @ 100 mls/hr Q10H IV 05/14/25 04:30 06/13/25 04:29 05/15/25 07:27 100 MLS/HR Lactated Ringer's (Lactated Ringers 1000ml) 1,000 ml BOLUS STAT IV 05/14/25 01:19 05/14/25 01:20 DC 05/14/25 02:24 1,000 ML Lactated Ringer's (Lactated Ringers 1000ml) 1,000 ml BOLUS STAT IV 05/13/25 23:56 05/14/25 00:00 DC 05/14/25 00:13 1,000 ML Magnesium Sulfate 50 ml @ 0 mls/hr PROTOCOL PRN IV As needed 05/14/25 19:00 06/13/25 18:59 05/15/25 10:08 25 MLS/HR Morphine Sulfate (morPHINE 2MG SYG) 2 mg Q4H PRN IVP SEVERE PAIN (7-10) 05/14/25 04:30 05/21/25 04:29 05/15/25 07:27 2 MG Ondansetron HCl (zoFRAN 4MG INJ) 4 mg Q6H PRN IV NAUSEA/VOMITING 05/14/25 04:30 06/13/25 04:29 05/15/25 07:21 4 MG Pantoprazole Sodium (PROTonix 40MG INJ) 40 mg DAILY IVP 05/16/25 09:00 06/15/25 08:59 UNV Potassium Chloride 100 ml @ 50 mls/hr AD PRN IV POTASSIUM PROTOCOL 05/14/25 19:00 06/13/25 18:59 05/14/25 18:46 50 MLS/HR DIAGNOSTICS / RADIOLOGY: [place] [address] [place] [id number] IMAGING REPORT Signed PATIENT: FARTUN BANUELOS MR#: [id number] : 1985 SEX: F AGE: 39 LOCATION: [facility] ORDER 57 STATUS: ADM IN REPORT#: [id number] SERVICE 55 REASON: sbo ORDERING PHYSICIAN: MARIPOSA URIAS MD PROCEDURE: ABD PELWWO - CT ABDOMEN/PELVIS W/WO CONTRAS EXAM: CT Abdomen and Pelvis with and without IV contrast CLINICAL HISTORY: sbo TECHNIQUE: Axial computed tomography images of the abdomen and pelvis with and without intravenous contrast. CT scan performed according to ALARA. Automated exposure control used during exam. CONTRAST: with and without intravenous contrast. COMPARISON: CT images from August 04, 2024 FINDINGS: Lung bases are clear. Mild hepatomegaly; the right hepatic lobe measures up to 17.2 cm in the craniocaudal dimension. Hepatic steatosis. The gallbladder is surgically absent. Bilateral adrenal glands, spleen, and pancreas are within normal limits. Punctate nonobstructing calculus within the inferior pole of the right kidney. Kidneys are otherwise unremarkable. Bowel loops are normal in caliber without evidence of obstruction, ileus, or obvious bowel wall thickening. There is colonic diverticulosis without evidence for diverticulitis. The appendix is normal. Bladder and pelvic organs demonstrate appropriate CT appearances. There is no ascites or lymphadenopathy. Opacified abdominal and pelvic vessels are patent. There is no acute or suspicious osseous abnormality. IMPRESSION: 1. No acute intraabdominal or pelvic pathology. Please see above for additional details. /[place] DICTATED BY: KENDY WILLOUGHBY Jr., MD DATE: 05/14/252250 ELECTRONICALLY SIGNED BY: KENDY WILLOUGHBY Jr., MD DATE: 05/14/252250 [facility] [address] [place] [address] IMAGING REPORT Signed PATIENT: FARTUN BANUELOS MR#: [id number] : 1985 SEX: F AGE: 39 LOCATION: [facility] ORDER 7 STATUS: ADM IN REPORT#: [id number] SERVICE 5 REASON: SHORTNESS OF BREATH ORDERING PHYSICIAN: AMAYA DAVIS MD PROCEDURE: CXR1VW - CHEST 1VW EXAM: CR Chest, 1 View. CLINICAL HISTORY: SHORTNESS OF BREATH COMPARISON: None provided. FINDINGS: LUNGS: The lungs show no infiltrate or other acute finding. PLEURAL SPACES: No evidence of pleural effusion or pneumothorax. MEDIASTINUM: Cardiac size and mediastinal contours within normal limits. BONES: No aggressive appearing osseous lesion seen. IMPRESSION: No acute cardiopulmonary pathology is evident. /[place] DICTATED BY: KENDY WILLOUGHBY Jr., MD DATE: 05/15/251135 ELECTRONICALLY SIGNED BY: KENDY WILLOUGHBY Jr., MD DATE: 05/15/251135 ASSESSMENT: Possible infectious or inflammatory gastrointestinal process, POA pancreatitis Intractable nausea and vomiting, POA Colonic diverticulosis POA Hepatic steatosis POA Right nephrolithiasis POA Suspected cannabinoid hyperemesis syndrome, POA Class II obesity (BMI 38.5 kg/m) PLAN: Possible infectious or inflammatory gastrointestinal process, POA Intractable nausea and vomiting, POA * Ordered chest X-ray to evaluate pneumothorax as she had sharp pain after repeated episodes of retching to rule out pneumothorax. * CT abdomen/pelvis negative for small bowel obstruction; notable for colonic diverticulosis, hepatic steatosis, and a punctate nonobstructing calculus in the inferior pole of the right kidney. * Gastroenterology consultation ordered for further evaluation. * The patient did not tolerate ice chips, with worsening nausea following intake. Will maintain NPO from 05.13.25. * Continue intravenous fluid hydration with LR 125 cc/hour. * Ondansetron and promethazine 25 mg PRN for nausea. * Dilaudid 0.5mg IV PRN for abdominal pain * Bentyl 20 mg IM to relieve spasms. * Diagnostic workup initiated: ESR, fecal leukocytes, stool gastrointestinal pathogen PCR panel, stool H. pylori antigen, stool culture, and C. difficile toxin assay. Follow up with the results when available. * Dietary advancement to clear liquids will be considered once nausea improves. Suspected cannabinoid hyperemesis syndrome, POA * The patient reports occasional marijuana use for relief of pain and anxiety. She was counseled in detail regarding the potential long-term consequences and risks associated with marijuana use disorder. DVT prophylaxis: Lovenox 30 mg subQ daily. GI prophylaxis: Protonix 40 mg daily IV Replace electrolytes as needed per protocol. The patient does not take any home medications. AM Labs: CBC, BMP, inflammatory markers, magnesium, phosphorus ATTESTATION BY PHYSICIAN I have seen and examined the patient. I reviewed the documentation, medical decision making, and treatment plan as noted by the resident provider above. I agree with the findings and plan of care. Aly Hernandez MD, LAKSHMI MD May 15, 2025 11:36
[2025-05-16] VITALS (7 sets, daily range): BP systolic 118–153; BP diastolic 59–80; PULSE 64–74; RESP 19–20; TEMP 98.1–98.5; O2SAT 98–99
[2025-05-16 05:23] LABS: IMMATURE GRANULOCYTE ABSOLUTE 0.04 K/uL (0-1); NUCLEATED RED BLOOD CELLS 0.0 % (0.0-0.19); PLATELET COUNT (AUTO) 296 K/uL (130-400); RED BLOOD CELL COUNT(AUTO) 4.50 MIL/uL (4.00-5.50); RED CELL DISTRIBUTION WIDTH 14.2 % (11.0-15.5); WHITE BLOOD COUNT (AUTO) 11.9 K/uL (4.8-10.8)
[2025-05-16 05:38] LABS: CREATININE 0.7 mg/dL (0.5-1.0); GLOMERULAR FILTR. RATE CALC 111.0 mL/min (>90); GLUCOSE,RANDOM 82.0 mg/dL (70-105); SODIUM SERUM 139.0 mmol/L (136-145); UREA NITROGEN, BLOOD 9.0 mg/dL (7-18)
--- NOTE | 2025-05-16 08:11 | CONS ---
GASTROENTEROLOGY CONSULTATION NOTE Date of Consultation: May 16, 2025 Time of Consultation: 08:11 History of Present Illness: [ This is a 39-year-old female patient presented to the emergency room with complaints of abdominal pain for one week associated with nausea and vomiting. Patient has past medical history of type 2 diabetes, GERD, and has had previous cholecystectomy and . We were consulted for epigastric abdominal pain. Initial WBC of 14.4 on 05/13 has since trended down to 11.9. Hemoglobin of 12.2 platelets 296. Initial total bilirubin of 0.4. AST and ALT were normal. Initial lipase of 31, then trended up to 96, now back at 36. Urine toxicology positive for THC. CT of abdomen and pelvis significant for mild hepatomegaly, hepatic steatosis. Punctate nonobstructive calculus within the inferior pole of the right kidney. On exam patient is resting in HF in no acute distress. She continues to report epigastric pain with nausea. She states pain began on 05/07/25 but worsen on 05/13/25. POc discussed and recommendations for EGD to assess for any pathology. Patient agreed to proceed. ] Review of Systems: CONSTITUTIONAL: No malaise or change in sensation of wellbeing. ENMT: No rhinorrhea, otorrhea, sinus pain, ear ache. CARDIOVASCULAR: No angina, palpitations, orthopnea or paroxysmal dyspnea. RESPIRATORY: No SOB. GASTROINTESTINAL: No abdominal pain, nausea, vomiting, diarrhea, hematemesis, melena or change in the patient's habitual bowel movements consistency/number. GENITOURINARY: No dysuria, hematuria or change in bladder continence. MUSCULOSKELETAL: No new muscle pain or decrease in muscular strength. No new joint swelling, redness or tenderness. SKIN: No new rash. Past Medical History: [Type 2 DM GERD ] Past Surgical History: [ Cholecystectomy C section] Past Social History: [ ] Family History: [ ] Coded Allergies: No Known Drug Allergies (Unverified Allergy, Unknown, 08/04/24) Physical Exam: GEN: Awake, alert, oriented in person, time and place, and in no acute distress. HEENT: No sinus tenderness. Tympanic membranes were not examined. No rhinorrhea. Oral pharyngeal mucosa is pink, CHEST: Inspection, palpation of the chest were unremarkable. Lung auscultation revealed normal breath sounds bilaterally. CARDIAC: Heart sounds are regular. ABD: Soft, tender to epigastric region and not distended. No peritoneal signs on palpation. No organomegaly. Normal bowel sounds. EXT: No cyanosis or clubbing. No edema. SKIN: Intact. No rashes. JOINTS: No evidence of synovitis or acute arthritis. NEURO: Alert and oriented to name, place and person. Cranial nerve examination is unremarkable. No focal motor deficits. Normal speech. Strength is normal. Vital Sign (Last 24 Hours) 05/15/25 05/16/25 19:58 04:00 Temp 98.4 Pulse 64 Resp 20 B/P (MAP) 125/61 Pulse Ox 96 O2 Delivery Room Air O2 Flow Rate 0 FiO2 21 l Intake & Output (last 24hrs) 05/15/25 05/15/25 05/16/25 15:00 23:00 07:00 Intake Total 0 ml 100.0 ml Balance 0 ml 100.0 ml Laboratory: [ ] Laboratory: Test 05/16/25 04:50 05/15/25 06:04 05/15/25 04:55 05/14/25 10:24 Range/Units White Blood Count 11.9 #H 4.8-10.8 K/uL Red Blood Count 4.50 4.00-5.50 MIL/uL Hemoglobin 12.2 12.0-16.0 g/dL Hematocrit 37.2 36-48 % Mean Corpuscular Volume 82.7 79-99 fL Mean Corpuscular Hemoglobin 27.1 27.0-33.0 pg Mean Corpuscular Hemoglobin Concent 32.8 32.0-36.0 g/dL Red Cell Distribution Width 14.2 11.0-15.5 % Platelet Count 296 130-400 K/uL Mean Platelet Volume 10.4 7.5-10.5 fL Immature Granulocyte % (Auto) 0.3 0-1 % Neutrophils (%) (Auto) 59.4 40.0-77.0 % Lymphocytes (%) (Auto) 32.2 21.0-51.0 % Monocytes (%) (Auto) 7.2 3.0-13.0 % Eosinophils (%) (Auto) 0.6 0.0-8.0 % Basophils (%) (Auto) 0.3 0.0-5.0 % Neutrophils # (Auto) 7.1 1.8-7.7 K/uL Lymphocytes # (Auto) 3.8 1.0-4.8 K/uL Monocytes # (Auto) 0.9 0.1-1.0 K/uL Eosinophils # (Auto) 0.07 0.00-0.70 K/uL Basophils # (Auto) 0.03 0.00-0.20 K/uL Absolute Immature Granulocyte (auto 0.04 0-1 K/uL Nucleated Red Blood Cells 0.0 0.0-0.19 % Sodium Level 139 136-145 mmol/L Potassium Level 3.1 L 3.5-5.1 mmol/L Chloride Level 103 101-111 mmol/L Carbon Dioxide Level 27 21-32 mmol/L Blood Urea Nitrogen 9 7-18 mg/dL Creatinine 0.7 0.5-1.0 mg/dL Glomerular Filtration Rate Calc 111 >90 mL/min Random Glucose 82 70-105 mg/dL Total Calcium 8.6 8.5-10.1 mg/dL Erythrocyte Sedimentation Rate 16 0-20 MM/HR Hemoglobin A1c 5.9 4.0-6.0 % Estimated Average Glucose (eAG) 123 70-126 mg/dL Phosphorus Level 2.9 2.5-4.9 mg/dL Magnesium Level 1.70 L 1.80-2.40 mg/dL C-Reactive Protein, Quantitative 2.20 0.5-3.0 mg/L Lipase 96 H 16-77 U/L Stool Lactoferrin (ADONIS) NEGATIVE NEGATIVE Urine Opiates Screen NEGATIVE NEGATIVE Urine Barbiturates Screen NEGATIVE NEGATIVE Urine Phencyclidine Screen NEGATIVE NEGATIVE Urine Amphetamines Screen NEGATIVE NEGATIVE Urine Benzodiazepines Screen NEGATIVE NEGATIVE Urine Cocaine Screen NEGATIVE NEGATIVE Urine Marijuana (THC) Screen POSITIVE H NEGATIVE Test 05/14/25 08:57 Range/Units Total Creatine Kinase 47 # 21-232 U/L Current Medications Medications (Trade) Dose Ordered Sig/Gisela Route PRN Reason Start Time Stop Time Status Last Admin Dose Admin Acetaminophen (TYLenol 650MG SUPPOSITORY) 650 mg Q6H PRN RC MILD PAIN (1-3) 05/14/25 04:30 06/13/25 04:29 Enoxaparin Sodium (Lovenox) 30 mg DAILY SQ 05/15/25 09:00 06/14/25 08:59 05/15/25 10:07 30 MG Famotidine (Pepcid 20mg Vial) 20 mg DAILY IV 05/14/25 09:00 05/15/25 11:11 DC 05/15/25 07:21 20 MG Hydralazine HCl (APRESOLine 20MG INJ) 10 mg Q6H PRN IV For:SBP above 160;DBP above 90 05/14/25 04:30 06/13/25 04:29 Hydromorphone HCl (DiLAUDid 0.5MG INJ) 0.5 mg Q6H PRN IVP SEVERE PAIN (7-10) 05/15/25 17:30 05/20/25 17:29 05/16/25 06:12 0.5 MG Lactated Ringer's 1,000 ml @ 125 mls/hr Q8H IV 05/14/25 04:30 06/13/25 04:29 05/16/25 02:46 125 MLS/HR Lactated Ringer's (Lactated Ringers 1000ml) 1,000 ml BOLUS STAT IV 05/14/25 01:19 05/14/25 01:20 DC 05/14/25 02:24 1,000 ML Lactated Ringer's (Lactated Ringers 1000ml) 1,000 ml BOLUS STAT IV 05/13/25 23:56 05/14/25 00:00 DC 05/14/25 00:13 1,000 ML Magnesium Sulfate 50 ml @ 0 mls/hr PROTOCOL PRN IV As needed 05/14/25 19:00 06/13/25 18:59 05/15/25 10:08 25 MLS/HR Morphine Sulfate (morPHINE 2MG SYG) 2 mg Q4H PRN IVP SEVERE PAIN (7-10) 05/14/25 04:30 05/15/25 17:43 DC 05/15/25 07:27 2 MG Ondansetron HCl (zoFRAN 4MG INJ) 4 mg Q6H PRN IV NAUSEA/VOMITING 05/14/25 04:30 06/13/25 04:29 05/16/25 06:12 4 MG Pantoprazole Sodium (PROTonix 40MG INJ) 40 mg DAILY IVP 05/16/25 09:00 06/15/25 08:59 Potassium Chloride 100 ml @ 50 mls/hr AD PRN IV POTASSIUM PROTOCOL 05/14/25 19:00 06/13/25 18:59 05/16/25 06:39 50 MLS/HR Diagnostics / Radiology: [COPY/PASTE HERE IF NO REPORTS PLEASE DELETE SECTION] Assessment: [ Abdominal pain Nausea and vomiting GERD Type 2 DM Marijuana use] Plan: [ Clear fluids today NPO after midnight Plan for EGD in am. Gi prophylaxis with Protonix 40mg IV bid Please call with questions, concerns, and change in clinical status Thank you for allowing us to be part of this patient's care] RADHA GARCIA NP May 16, 2025 08:11
[2025-05-16] MEDS ORDERED: PHARMACY COMMUNICATION MISC SCH (11:30)
[2025-05-16] MEDS: SCOPOLAMINE HYDROBROMIDE 1 EACH ADH..PATCH TD ONE (11:31)
[2025-05-16] MEDS ORDERED: COMPOUND PO MISCELLANEOUS 1 EACH MISC MISC PRN (12:00)
[2025-05-16] MEDS: LIDO 2% VISC 30ML+MAG/AL/SIMETH 30ML+DICYCLOMINE 20MG 10ML PO PRN (12:13)
--- NOTE | 2025-05-16 13:59 | PN ---
[facility] PROGRESS NOTE Date of Service: May 16, 2025 Time of Service: 13:47 SUBJECTIVE: 05/14/25: The patient was examined at the bedside today. She reports persistent nausea and experienced approximately 10 episodes of vomiting yesterday, though no vomiting has occurred today. She describes epigastric abdominal pain, cramping in nature, with a sensation like a knot in her stomach. She remains NPO. The patient reports having a bowel movement yesterday. She typically experiences constipation but, over the past two weeks, has had intermittent nausea, vomiting, and episodes of diarrhea. She denies any history of alcohol use, hematochezia, hematemesis, melena. She was evaluated at [facility] last week for similar symptoms and was discharged with the diagnosis of vomiting and an ovarian cyst. She was discharged with prescriptions for dicyclomine and ondansetron (Zofran). She reports not eating for the first four days after discharge, then consuming light meals over the past two days, which she has not tolerated. She also has a chronic history of intermittent heartburn. She has insurance now about since a year but currently does not have a primary care provider. Laboratory findings today include WBC 14.4 with neutrophil predominance (84.7%), Sodium 135, Chloride 99, UA showed urine pH 8.5, positive ketones, and urine RBC 1125/hpf. CT abdomen and pelvis showed mild hepatomegaly with hepatic steatosis, surgically absent gallbladder and punctate nonobstructing calculus within inferior pole of the right kidney, colonic diverticulosis, otherwise negative. Plan is to continue IV fluids and maintain NPO status until the symptoms improves. 05.15.25: The patient was examined today in room no-320. She reports acute onset of epigastric pain described as cramping in nature. She has been NPO since Thursday and is currently not actively vomiting but has persistent nausea with frequent retching episodes that started around 7:00 a.m. today approximately 1 h our after symptom onset, she developed shortness of breath and sharp pain in the epigastrium. The patient appears to be in acute distress and is very uncomfortable. Initial treatment with morphine sulphate 2mg and Zofran 4mg at 7:20 a.m. provided no relief. Subsequently, promethazine 25mg IM and hydromorphone 0.5 mg were given, after which the pain subsided. A chest x-ray has been ordered to evaluate further, showed no evidence of pneumothorax. Blood pressure is 155/89 mm Hg, Labs: lipase-96, stool lactoferrin ADONIS- negative,Potassium-3.3 and Magnesium-1.7, Patient is on potassium and magnesium protocol for electrolyte replenishment Urine Marijuana- positive, Urine analysis revealed : urine ketones-60, RBC-11-25, WBC-2-5, Protein-10, PH-8.5. 05.16.25: The patient was examined today in room no-320. The patient stated that she had abdominal pain at 6:00AM and was given Dilaudid 0.5mg after which the pain subsided but the nausea persisted. Give Scopolamine transdermal patch, promethaz ine 12.5mg IM, Lidocaine 2% PO. Patient also complained of 6 episodes of loose stools last night. Gastroenterology consult recommended EGD tube tomorrow A.M, patient will be NPO from midnight. Vitals: WBC-11.9, K-3.1, lipase -36 and vitals are stable. patient is on potassium and magnesium protocol. REVIEW OF SYSTEMS CONSTITUTIONAL: Denies fevers, chills, or night sweats. No unintentional weight loss reported. NEUROLOGICAL: Denies headache, amaurosis fugax, motor weakness, sensory deficit, vertigo/spinning sensation, gait abnormalities, or tremors. ENT: No hearing loss, otalgia, otorrhea, rhinitis, rhinorrhea, hoarseness, or sore throat. CARDIOVASCULAR: Denies any exertional angina, dyspnea on exertion, orthopnea, paroxysmal nocturnal dyspnea, palpitations, life-threatening arrhythmias, claudication. PULMONARY: Denies any shortness of breath, cough, phlegm/sputum, hemoptysis, pleuritic chest pain. SLEEP: Denies morning headaches, daytime somnolence or napping. Denies d ifficulty falling asleep, staying asleep, waking from sleep. Denies knowledge of snoring. Gastrointestinal: Reports nausea, retching, epigastric abdominal pain with cramping at 6:00 AM, NPO since 05.13.25 and chronic heartburn. GENITOURINARY: Denies frequency, urgency, nocturia, hematuria or incontinence (Storage/Irritative symptoms.) Low urinary stream, straining to void, urinary intermittency or hesitancy, splitting of the voiding stream, terminal dribbling. PHYSICAL EXAM GENERAL APPEARANCE: The patient is awake, alert, and oriented, in no acute c ardiopulmonary distress. HEENT: Face is symmetric. Pupils are equal and reactive. Extraocular movements are intact. NECK: Supple. No JVD. No thyromegaly. No submental, submandibular, pre- /postauricular, occipital or supraclavicular lymphadenopathy. CHEST: Normal chest expansion. No Telemetry. LUNGS: Absence of any rales, rhonchi or any wheezing. CARDIOVASCULAR: Regular. S1 and S2 normal. No appreciable rubs, murmurs or gallops. Abdomen: Soft, non-distended, with tenderness to palpation in the epigastric and supraumbilical regions; no rebound tenderness or guarding noted. : Deferred. No Napier. EXTREMITIES: Non-edematous and not cyanotic. No clubbing. Good capillary refill. SKIN: No skin breakdown. Vital Signs (last 8hr) Date Time Temp Pulse Resp B/P (MAP) Pulse Ox O2 Delivery O2 Flow Rate FiO2 05/16/25 12:00 98.4 64 20 141/77 100 Room Air 21 05/16/25 08:00 98.2 65 19 142/68 99 Room Air 21 LABS: Laboratory: Test 05/16/25 08:47 05/16/25 04:50 05/15/25 06:04 05/15/25 04:55 Range/Units Lactic Acid Level 1.2 0.8-2.5 mmol/L Magnesium Level 1.90 1.80-2.40 mg/dL Lipase 36 16-77 U/L White Blood Count 11.9 #H 4.8-10.8 K/uL Red Blood Count 4.50 4.00-5.50 MIL/uL Hemoglobin 12.2 12.0-16.0 g/dL Hematocrit 37.2 36-48 % Mean Corpuscular Volume 82.7 79-99 fL Mean Corpuscular Hemoglobin 27.1 27.0-33.0 pg Mean Corpuscular Hemoglobin Concent 32.8 32.0-36.0 g/dL Red Cell Distribution Width 14.2 11.0-15.5 % Platelet Count 296 130-400 K/uL Mean Platelet Volume 10.4 7.5-10.5 fL Immature Granulocyte % (Auto) 0.3 0-1 % Neutrophils (%) (Auto) 59.4 40.0-77.0 % Lymphocytes (%) (Auto) 32.2 21.0-51.0 % Monocytes (%) (Auto) 7.2 3.0-13.0 % Eosinophils (%) (Auto) 0.6 0.0-8.0 % Basophils (%) (Auto) 0.3 0.0-5.0 % Neutrophils # (Auto) 7.1 1.8-7.7 K/uL Lymphocytes # (Auto) 3.8 1.0-4.8 K/uL Monocytes # (Auto) 0.9 0.1-1.0 K/uL Eosinophils # (Auto) 0.07 0.00-0.70 K/uL Basophils # (Auto) 0.03 0.00-0.20 K/uL Absolute Immature Granulocyte (auto 0.04 0-1 K/uL Nucleated Red Blood Cells 0.0 0.0-0.19 % Sodium Level 139 136-145 mmol/L Potassium Level 3.1 L 3.5-5.1 mmol/L Chloride Level 103 101-111 mmol/L Carbon Dioxide Level 27 21-32 mmol/L Blood Urea Nitrogen 9 7-18 mg/dL Creatinine 0.7 0.5-1.0 mg/dL Glomerular Filtration Rate Calc 111 >90 mL/min Random Glucose 82 70-105 mg/dL Total Calcium 8.6 8.5-10.1 mg/dL Erythrocyte Sedimentation Rate 16 0-20 MM/HR Hemoglobin A1c 5.9 4.0-6.0 % Estimated Average Glucose (eAG) 123 70-126 mg/dL Phosphorus Level 2.9 2.5-4.9 mg/dL C-Reactive Protein, Quantitative 2.20 0.5-3.0 mg/L Stool Lactoferrin (ADONIS) NEGATIVE NEGATIVE Current Medications Medications (Trade) Dose Ordered Sig/Gisela Route PRN Reason Start Time Stop Time Status Last Admin Dose Admin Acetaminophen (TYLenol 650MG SUPPOSITORY) 650 mg Q6H PRN RC MILD PAIN (1-3) 05/14/25 04:30 06/13/25 04:29 Enoxaparin Sodium (Lovenox) 30 mg DAILY SQ 05/15/25 09:00 06/14/25 08:59 05/16/25 08:49 30 MG Famotidine (Pepcid 20mg Vial) 20 mg DAILY IV 05/14/25 09:00 05/15/25 11:11 DC 05/15/25 07:21 20 MG Hydralazine HCl (APRESOLine 20MG INJ) 10 mg Q6H PRN IV For:SBP above 160;DBP above 90 05/14/25 04:30 06/13/25 04:29 Hydromorphone HCl (DiLAUDid 0.5MG INJ) 0.5 mg Q6H PRN IVP SEVERE PAIN (7-10) 05/15/25 17:30 05/20/25 17:29 05/16/25 06:12 0.5 MG Lactated Ringer's 1,000 ml @ 125 mls/hr Q8H IV 05/14/25 04:30 06/13/25 04:29 05/16/25 02:46 125 MLS/HR Lactated Ringer's (Lactated Ringers 1000ml) 1,000 ml BOLUS STAT IV 05/14/25 01:19 05/14/25 01:20 DC 05/14/25 02:24 1,000 ML Lactated Ringer's (Lactated Ringers 1000ml) 1,000 ml BOLUS STAT IV 05/13/25 23:56 05/14/25 00:00 DC 05/14/25 00:13 1,000 ML Lidocaine HCl/Al Hydroxide/Mg Hydroxide/ Dicyclomine HCl 20ML OR AD Q6H PRN PO INDIGESTION 05/16/25 12:00 06/15/25 11:59 05/16/25 12:13 20 ML Magnesium Sulfate 50 ml @ 0 mls/hr PROTOCOL PRN IV As needed 05/14/25 19:00 06/13/25 18:59 05/15/25 10:08 25 MLS/HR Morphine Sulfate (morPHINE 2MG SYG) 2 mg Q4H PRN IVP SEVERE PAIN (7-10) 05/14/25 04:30 05/15/25 17:43 DC 05/15/25 07:27 2 MG Ondansetron HCl (zoFRAN 4MG INJ) 4 mg Q6H PRN IV NAUSEA/VOMITING 05/14/25 04:30 06/13/25 04:29 05/16/25 06:12 4 MG Pantoprazole Sodium (PROTonix 40MG INJ) 40 mg DAILY IVP 05/16/25 09:00 06/15/25 08:59 05/16/25 08:49 40 MG Pharmacy Profile Note (Pharmacy Communication) 1 each ONCE MISC 05/16/25 11:30 05/16/25 11:33 DC Potassium Chloride 100 ml @ 50 mls/hr AD PRN IV POTASSIUM PROTOCOL 05/14/25 19:00 06/13/25 18:59 05/16/25 06:39 50 MLS/HR DIAGNOSTICS / RADIOLOGY: [ ] ASSESSMENT: Acute gastroenteritis to rule out infectious etiology, POA Pancreatitis resolved ( secondary to intractable nausea and vomiting) cannabinoid hyperemesis syndrome, POA Vomiting induced metabolic alkalosis, POA Intractable nausea and vomiting, POA Colonic diverticulosis POA Hepatic steatosis POA Right nephrolithiasis POA Class II obesity (BMI 38.5 kg/m) PLAN: Acute gastroenteritis to rule out infectious etiology, POA Intractable nausea and vomiting, POA * Gastroenterology consultation recommended EGD tube tomorrow AM * Ordered chest X-ray to evaluate esophageal tear as she had sharp pain after repeated episodes of retching to rule out pneumothorax on 05.15.25. * CT abdomen/pelvis negative for small bowel obstruction; notable for colonic diverticulosis, hepatic steatosis, and a punctate nonobstructing calculus in the inferior pole of the right kidney. * The patient did not tolerate ice chips, with worsening nausea following intake. Was NPO from 05.13.25. * Continue intravenous fluid hydration with LR 125 cc/hour. * Ondansetron 25mg and promethazine 25 mg PRN for nausea. * Dilaudid 0.2mg IV PRN for abdominal pain * Bentyl 20 mg IM to relieve spasms. * Diagnostic workup initiated: ESR, fecal leukocytes, stool gastrointestinal pathogen PCR panel, stool H. pylori antigen, stool culture, and C. difficile toxin assay. Follow up with the results when available. * Dietary advancement to clear liquids will be considered once nausea improves. Suspected cannabinoid hyperemesis syndrome, POA * The patient reports occasional marijuana use for relief of pain and anxiety. She was counseled in detail regarding the potential long-term consequences and risks associated with marijuana use disorder. Pancreatitis resolved ( secondary to intractable nausea and vomiting) * NPO since 05/13 * Intravenous fluid hydration with LR 125 cc/hour * Lipase 96 on 05/15 to 36 on 05/16 * treated pain with Dilaudid 0.5mg DVT prophylaxis: Lovenox 30 mg subQ daily. GI prophylaxis: Protonix 40 mg daily IV Replace electrolytes as needed per protocol. The patient does not take any home medications. AM Labs: CBC, BMP, inflammatory markers, magnesium, phosphorus ATTESTATION BY PHYSICIAN I have seen and examined the patient. I reviewed the documentation, medical decision making, and treatment plan as noted by the resident provider above. I agree with the findings and plan of care. Aly Hernandez MD, LAKSHMI MD May 16, 2025 13:59 RICKY BURCH MD May 16, 2025 15:07
[2025-05-16] MEDS ORDERED: PoTASSium chl 10% ELIXIR 20MEQ 20 MEQ/15 ML UDCUP PO PRN (19:30)
[2025-05-16] MEDS: PROMETHAZINE HCL 25 MG/ML 1ML AMPULE IM ONE (19:53)
[2025-05-17] VITALS (11 sets, daily range): BP systolic 105–126; BP diastolic 62–69; PULSE 58–78; RESP 14–20; TEMP 97.6–98.1
[2025-05-17 06:05] LABS: IMMATURE GRANULOCYTE ABSOLUTE 0.03 K/uL (0-1); NUCLEATED RED BLOOD CELLS 0.0 % (0.0-0.19); PLATELET COUNT (AUTO) 294 K/uL (130-400); RED BLOOD CELL COUNT(AUTO) 4.64 MIL/uL (4.00-5.50); RED CELL DISTRIBUTION WIDTH 14.2 % (11.0-15.5); WHITE BLOOD COUNT (AUTO) 11.0 K/uL (4.8-10.8)
[2025-05-17 06:16] LABS: CREATININE 0.8 mg/dL (0.5-1.0); GLOMERULAR FILTR. RATE CALC 95.0 mL/min (>90); GLUCOSE,RANDOM 78.0 mg/dL (70-105); SODIUM SERUM 140.0 mmol/L (136-145); UREA NITROGEN, BLOOD 8.0 mg/dL (7-18)
[2025-05-17 07:14] LABS: C DIFFICILE TOXIN A/B Not Detected (Not Detected); ENTEROAGGREGATIVE ECOLI Not Detected (Not Detected); GIARDIA LAMBLIA Not Detected (Not Detected); PLESIOMONAS SHIGELOIDES Not Detected (Not Detected); SAPOVIRUS Not Detected (Not Detected); SHIGELLA/ENTEROINVASIVE E COLI Not Detected (Not Detected); VIBRIO Not Detected (Not Detected); VIBRIO CHOLERAE Not Detected (Not Detected)
--- NOTE | 2025-05-17 08:52 | PN ---
[facility] PROGRESS NOTE Date of Service: May 17, 2025 Time of Service: 08:43 SUBJECTIVE: 05/14/25: The patient was examined at the bedside today. She reports persistent nausea and experienced approximately 10 episodes of vomiting yesterday, though no vomiting has occurred today. She describes epigastric abdominal pain, cramping in nature, with a sensation like a knot in her stomach. She remains NPO. The patient reports having a bowel movement yesterday. She typically experiences constipation but, over the past two weeks, has had intermittent nausea, vomiting, and episodes of diarrhea. She denies any history of alcohol use, hematochezia, hematemesis, melena. She was evaluated at [facility] last week for similar symptoms and was discharged with the diagnosis of vomiting and an ovarian cyst. She was discharged with prescriptions for dicyclomine and ondansetron (Zofran). She reports not eating for the first four days after discharge, then consuming light meals over the past two days, which she has not tolerated. She also has a chronic history of intermittent heartburn. She has insurance now about since a year but currently does not have a primary care provider. Laboratory findings today include WBC 14.4 with neutrophil predominance (84.7%), Sodium 135, Chloride 99, UA showed urine pH 8.5, positive ketones, and urine RBC 1125/hpf. CT abdomen and pelvis showed mild hepatomegaly with hepatic steatosis, surgically absent gallbladder and punctate nonobstructing calculus within inferior pole of the right kidney, colonic diverticulosis, otherwise negative. Plan is to continue IV fluids and maintain NPO status until the symptoms improves. 05.15.25: The patient was examined today in room no-320. She reports acute onset of epigastric pain described as cramping in nature. She has been NPO since Thursday and is currently not actively vomiting but has persistent nausea with frequent retching episodes that started around 7:00 a.m. today approximately 1 h our after symptom onset, she developed shortness of breath and sharp pain in the epigastrium. The patient appears to be in acute distress and is very uncomfortable. Initial treatment with morphine sulphate 2mg and Zofran 4mg at 7:20 a.m. provided no relief. Subsequently, promethazine 25mg IM and hydromorphone 0.5 mg were given, after which the pain subsided. A chest x-ray has been ordered to evaluate further, showed no evidence of pneumothorax. Blood pressure is 155/89 mm Hg, Labs: lipase-96, stool lactoferrin ADONIS- negative,Potassium-3.3 and Magnesium-1.7, Patient is on potassium and magnesium protocol for electrolyte replenishment Urine Marijuana- positive, Urine analysis revealed : urine ketones-60, RBC-11-25, WBC-2-5, Protein-10, PH-8.5. 05.16.25: The patient was examined today in room no-320. The patient stated that she had abdominal pain at 6:00AM and was given Dilaudid 0.5mg after which the pain subsided but the nausea persisted. Give Scopolamine transdermal patch, promethaz ine 12.5mg IM, Lidocaine 2% PO. Patient also complained of 6 episodes of loose stools last night. Gastroenterology consult recommended EGD tube tomorrow A.M, patient will be NPO from midnight. Vitals: WBC-11.9, K-3.1, lipase -36 and vitals are stable. patient is on potassium and magnesium protocol. 05.17.2025: The patient was examined today in room no-320. Patient observed comfortably sleeping in the bed. Patient reports no abdominal pain, nausea or diarrhea. she stated that she had pain at 6:00 p.m yesterday and pain subsided after administering Dilaudid 0.2mg. Patient is scheduled for EGD tube at 7:00 a.m today, which revealed mucosal changes suspicious for gastroenteritis and is biopsied. Gastroenterology recommended advancing of diet as tolerated, and follow up in outpatient clinic in a week vitals: stable Labs: WBC- 11K, MCH- 26.5, potassium- 3.0( patient is on potassium protocol) REVIEW OF SYSTEMS CONSTITUTIONAL: Denies fevers, chills, or night sweats. No unintentional weight loss reported. NEUROLOGICAL: Denies headache, amaurosis fugax, motor weakness, sensory def icit, vertigo/spinning sensation, gait abnormalities, or tremors. ENT: No hearing loss, otalgia, otorrhea, rhinitis, rhinorrhea, hoarseness, or sore throat. CARDIOVASCULAR: Denies any exertional angina, dyspnea on exertion, orthopnea, paroxysmal nocturnal dyspnea, palpitations, life-threatening arrhythmias, claudication. PULMONARY: Denies any shortness of breath, cough, phlegm/sputum, hemoptysis, pleuritic chest pain. SLEEP: Denies morning headaches, daytime somnolence or napping. Denies difficulty falling asleep, staying asleep, waking from sleep. Denies knowledge of snoring. Gastrointestinal: Reports no abdominal pain, nausea or diarrhea GENITOURINARY: Denies frequency, urgency, nocturia, hematuria or incontinence (Storage/Irritative symptoms.) Low urinary stream, straining to void, urinary intermittency or hesitancy, splitting of the voiding stream, terminal dribbling. PHYSICAL EXAM GENERAL APPEARANCE: The patient is awake, alert, and oriented, in no acute cardiopulmonary distress. HEENT: Face is symmetric. Pupils are equal and reactive. Extraocular movements are intact. NECK: Supple. No JVD. No thyromegaly. No submental, submandibular, pre- /postauricular, occipital or supraclavicular lymphadenopathy. CHEST: Normal chest expansion. No Telemetry. LUNGS: Absence of any rales, rhonchi or any wheezing. CARDIOVASCULAR: Regular. S1 and S2 normal. No appreciable rubs, murmurs or ga llops. Abdomen: Soft, non-distended, no rebound tenderness or guarding noted. : Deferred. No Napier. EXTREMITIES: Non-edematous and not cyanotic. No clubbing. Good capillary refill. SKIN: No skin breakdown. Vital Signs (last 8hr) Date Time Temp Pulse Resp B/P (MAP) Pulse Ox O2 Delivery O2 Flow Rate FiO2 05/17/25 08:22 97.7 65 17 109/65 98 Aerosol Face Mask 10.0 05/17/25 04:00 97.9 66 20 112/65 98 Room Air LABS: Laboratory: Test 05/17/25 06:00 05/16/25 08:47 05/16/25 01:13 Range/Units White Blood Count 11.0 H 4.8-10.8 K/uL Red Blood Count 4.64 4.00-5.50 MIL/uL Hemoglobin 12.3 12.0-16.0 g/dL Hematocrit 38.4 36-48 % Mean Corpuscular Volume 82.8 79-99 fL Mean Corpuscular Hemoglobin 26.5 L 27.0-33.0 pg Mean Corpuscular Hemoglobin Concent 32.0 32.0-36.0 g/dL Red Cell Distribution Width 14.2 11.0-15.5 % Platelet Count 294 130-400 K/uL Mean Platelet Volume 9.8 7.5-10.5 fL Immature Granulocyte % (Auto) 0.3 0-1 % Neutrophils (%) (Auto) 61.6 40.0-77.0 % Lymphocytes (%) (Auto) 30.9 21.0-51.0 % Monocytes (%) (Auto) 6.4 3.0-13.0 % Eosinophils (%) (Auto) 0.6 0.0-8.0 % Basophils (%) (Auto) 0.2 0.0-5.0 % Neutrophils # (Auto) 6.8 1.8-7.7 K/uL Lymphocytes # (Auto) 3.4 1.0-4.8 K/uL Monocytes # (Auto) 0.7 0.1-1.0 K/uL Eosinophils # (Auto) 0.07 0.00-0.70 K/uL Basophils # (Auto) 0.02 0.00-0.20 K/uL Absolute Immature Granulocyte (auto 0.03 0-1 K/uL Nucleated Red Blood Cells 0.0 0.0-0.19 % Sodium Level 140 136-145 mmol/L Potassium Level 3.0 *L 3.5-5.1 mmol/L Chloride Level 103 101-111 mmol/L Carbon Dioxide Level 29 21-32 mmol/L Blood Urea Nitrogen 8 7-18 mg/dL Creatinine 0.8 0.5-1.0 mg/dL Glomerular Filtration Rate Calc 95 >90 mL/min Random Glucose 78 70-105 mg/dL Total Calcium 8.5 8.5-10.1 mg/dL Lactic Acid Level 1.2 0.8-2.5 mmol/L Magnesium Level 1.90 1.80-2.40 mg/dL Lipase 36 16-77 U/L C. difficile Antigen and Toxins A,B See comments NEG Current Medications Medications (Trade) Dose Ordered Sig/Gisela Route PRN Reason Start Time Stop Time Status Last Admin Dose Admin Acetaminophen (TYLenol 650MG SUPPOSITORY) 650 mg Q6H PRN RC MILD PAIN (1-3) 05/14/25 04:30 06/13/25 04:29 Enoxaparin Sodium (Lovenox) 30 mg DAILY SQ 05/15/25 09:00 06/14/25 08:59 05/16/25 08:49 30 MG Famotidine (Pepcid 20mg Vial) 20 mg DAILY IV 05/14/25 09:00 05/15/25 11:11 DC 05/15/25 07:21 20 MG Hydralazine HCl (APRESOLine 20MG INJ) 10 mg Q6H PRN IV For:SBP above 160;DBP above 90 05/14/25 04:30 06/13/25 04:29 Hydromorphone HCl (DiLAUDid 0.5MG INJ) 0.2 mg Q6H PRN IVP SEVERE PAIN (7-10) 05/16/25 17:30 05/21/25 17:29 05/16/25 19:53 0.2 MG Hydromorphone HCl (DiLAUDid 0.5MG INJ) 0.5 mg Q6H PRN IVP SEVERE PAIN (7-10) 05/15/25 17:30 05/16/25 13:56 DC 05/16/25 06:12 0.5 MG Lactated Ringer's 1,000 ml @ 125 mls/hr Q8H IV 05/14/25 04:30 06/13/25 04:29 05/17/25 02:56 125 MLS/HR Lactated Ringer's (Lactated Ringers 1000ml) 1,000 ml BOLUS STAT IV 05/14/25 01:19 05/14/25 01:20 DC 05/14/25 02:24 1,000 ML Lactated Ringer's (Lactated Ringers 1000ml) 1,000 ml BOLUS STAT IV 05/13/25 23:56 05/14/25 00:00 DC 05/14/25 00:13 1,000 ML Lidocaine HCl/Al Hydroxide/Mg Hydroxide/ Dicyclomine HCl 20ML OR AD Q6H PRN PO INDIGESTION 05/16/25 12:00 06/15/25 11:59 05/16/25 12:13 20 ML Magnesium Sulfate 50 ml @ 0 mls/hr PROTOCOL PRN IV As needed 05/14/25 19:00 06/13/25 18:59 05/15/25 10:08 25 MLS/HR Morphine Sulfate (morPHINE 2MG SYG) 2 mg Q4H PRN IVP SEVERE PAIN (7-10) 05/14/25 04:30 05/15/25 17:43 DC 05/15/25 07:27 2 MG Ondansetron HCl (zoFRAN 4MG INJ) 4 mg Q6H PRN IV NAUSEA/VOMITING 05/14/25 04:30 06/13/25 04:29 05/16/25 06:12 4 MG Pantoprazole Sodium (PROTonix 40MG INJ) 40 mg DAILY IVP 05/16/25 09:00 06/15/25 08:59 05/16/25 08:49 40 MG Pharmacy Profile Note (Pharmacy Communication) 1 each ONCE MISC 05/16/25 11:30 05/16/25 11:33 DC Potassium Chloride 100 ml @ 50 mls/hr AD PRN IV POTASSIUM PROTOCOL 05/14/25 19:00 05/16/25 19:07 DC 05/16/25 06:39 50 MLS/HR Potassium Chloride 100 ml @ 100 mls/hr AD PRN IV POTASSIUM PROTOCOL 05/16/25 19:30 06/15/25 19:29 05/17/25 06:37 100 MLS/HR Potassium Chloride (K-Dur/Klor-Con 20meq) 20 meq AD PRN PO POTASSIUM PROTOCOL 05/16/25 19:30 06/15/25 19:29 Potassium Chloride (KCl 10% Elixir 20meq/15ml) 20 meq AD PRN PO POTASSIUM PROTOCOL 05/16/25 19:30 06/15/25 19:29 DIAGNOSTICS / RADIOLOGY: ASSESSMENT: Acute gastroenteritis, POA Pancreatitis resolved ( secondary to intractable nausea and vomiting) Cannabinoid hyperemesis syndrome, POA Vomiting induced metabolic alkalosis, POA Intractable nausea and vomiting, POA Colonic diverticulosis POA Hepatic steatosis POA Right nephrolithiasis POA Class II obesity (BMI 38.5 kg/m) PLAN: Acute gastroenteritis, POA Intractable nausea and vomiting, POA * Gastroenterology consultation recommended EGD tube today at 7 AM, NPO from midnight yesterday. * EGD revealed mucosal changes suspicious for gastroenteritis and is biopsied, patient was advised advance diet as tolerate and to follow up in the outpatient clinic in a week. * Ordered chest X-ray to evaluate esophageal tear as she had sharp pain after repeated episodes of retching to rule out pneumothorax on 05.15.25. * CT abdomen/pelvis negative for small bowel obstruction; notable for colonic diverticulosis, hepatic steatosis, and a punctate nonobstructing calculus in the inferior pole of the right kidney. * The patient did not tolerate ice chips, with worsening nausea following intake. * Continue intravenous fluid hydration with LR 125 cc/hour. * Ondansetron 25mg and promethazine 25 mg PRN for nausea. * Dilaudid 0.2mg IV PRN for abdominal pain * Bentyl 20 mg IM to relieve spasms. * Diagnostic workup initiated: ESR, fecal leukocytes, stool gastrointestinal pathogen PCR panel, stool H. pylori antigen, stool culture, and C. difficile toxin assay. Follow up with the results when available. * Dietary advancement to clear liquids will be considered once nausea improves. Suspected cannabinoid hyperemesis syndrome, POA * The patient reports occasional marijuana use for relief of pain and anxiety. She was counseled in detail regarding the potential long-term consequences and risks associated with marijuana use disorder. Pancreatitis resolved ( secondary to intractable nausea and vomiting) * NPO since 05/13 * Intravenous fluid hydration with LR 125 cc/hour * Lipase 96 on 05/15 to 36 on 05/16 * treated pain with Dilaudid 0.5mg * DVT prophylaxis: Lovenox 30 mg subQ daily. GI prophylaxis: Protonix 40 mg daily IV Replace electrolytes as needed per protocol. The patient does not take any home medications. ATTESTATION BY PHYSICIAN I have seen and examined the patient. I reviewed the documentation, medical decision making, and treatment plan as noted by the resident provider above. I agree with the findings and plan of care. Aly Hernandez MD, LAKSHMI MD May 17, 2025 08:52
--- NOTE | 2025-05-17 09:00 | NUR ---
BACK TO UNIT PT BACK FROM EGD. PT A&OX4. NON LABORED BREATHING. ANSWERED QUESTIONS. FAMILY AT BEDSIDE. DR. DAVIS PRESENT ON UNIT. SAW EGD RESULTS. STATES NO POST OP VITAL SIGNS AND TO KEEP NPO FOR NOW. NO FURTHER ORDERS.
--- NOTE | 2025-05-17 10:26 | DS ---
Discharge Summary Hospital Course Summary: 39 year old female patient initially presented to the Emergency department with persistent nausea, epigastric cramping abdominal pain, multiple episodes of vomiting on 05.15.25. She reported a history of intermittent heartburn, recent episodes of diarrhea, and prior evaluation of [facility] for similar symptoms with a diagnosis of vomiting and ovarian cyst. Upon presentation, she was hemodynamically stable but in acute discomfort. Initial laboratory findings revealed leukocytosis (WBC 14.4) With neutrophilic predominance, mild electrolyte disturbances including hypokalemia ( k:3.3) and hypomagnesemia ( m.7) and positive urine ketones. Imaging studies including CT of the abdomen and pelvis demonstrated mild hepatomegaly with hepatic steatosis, surgically absent gallbladder, nonobstructing renal calculus, and colonic diverticulosis. Urine marijuana is positive and she told that she gets relief after taking hot showers. Initial management in the ED included IV fluids, antiemetics(ondansetron, promethazine), and analgesics (morphine) which provided partial symptom relief. During hospitalization, the patient was diagnosed with mild acute pancreatitis (lipase-96 on 05.15.25) and managed with NPO status, IV fluids, and pain control. Patient received electrolyte replacement therapy for potassium and magnesium. She experienced intermittent epigastric pain and nausea, as well as episodes of loose stools. she was treated with Dilaudid(0.5mg) , scopolamine transdermal patch, promethazine, and oral lidocaine 2% as needed. Gastroenterology was consulted, and an EGD was performed, revealing mucosal changes suspicious of gastritis, biopsies were obtained. Subsequent recom mendations included advancing diet as tolerated and outpatient follow-up within a week. Through out her stay, the patient's vital signs remained stable, and she gradually tolerated oral intake. The patient is now hemodynamically stable, comfortable and ready for discharge, electrolytes are being maintained on protocol, and she has been advised to follow up with review engineer for biopsy results and on going management. She will continue her diet as tolerated and monitor for recurrent symptoms. Discharge instructions and outpatient follow-up plan have been discussed for which the patient gave a verbal agreement. Technology Instructor(s): CONSULTATION REPORT Name: BANUELOSCADENCEFARTUN Acct: [id number] MR: [id number] : 1985 Admit Date: 05/14/25 RADHA GARCIA NP [facility] [address] [place] [address] GASTROENTEROLOGY CONSULTATION NOTE Date of Consultation: May 16, 2025 Time of Consultation: 08:11 History of Present Illness: [ This is a 39-year-old female patient presented to the emergency room with complaints of abdominal pain for one week associated with nausea and vomiting. Patient has past medical history of type 2 diabetes, GERD, and has had previous cholecystectomy and . We were consulted for epigastric abdominal pain. Initial WBC of 14.4 on 05/13 has since trended down to 11.9. Hemoglobin of 12.2 platelets 296. Initial total bilirubin of 0.4. AST and ALT were normal. Initial lipase of 31, then trended up to 96, now back at 36. Urine toxicology positive for THC. CT of abdomen and pelvis significant for mild hepatomegaly, hepatic steatosis. Punctate nonobstructive calculus within the inferior pole of the right kidney. On exam patient is resting in HF in no acute distress. She continues to report epigastric pain with nausea. She states pain began on 05/07/25 but worsen on 05/13/25. POc discussed and recommendations for EGD to assess for any pathology. Patient agreed to proceed. ] Review of Systems: CONSTITUTIONAL: No malaise or change in sensation of wellbeing. ENMT: No rhinorrhea, otorrhea, sinus pain, ear ache. CARDIOVASCULAR: No angina, palpitations, orthopnea or paroxysmal dyspnea. RESPIRATORY: No SOB. GASTROINTESTINAL: No abdominal pain, nausea, vomiting, diarrhea, hematemesis, melena or change in the patient's habitual bowel movements consistency/number. GENITOURINARY: No dysuria, hematuria or change in bladder continence. MUSCULOSKELETAL: No new muscle pain or decrease in muscular strength. No new joint swelling, redness or tenderness. SKIN: No new rash. Past Medical History: [Type 2 DM GERD ] Past Surgical History: [ Cholecystectomy C section] Past Social History: [ ] Family History: [ ] Coded Allergies: No Known Drug Allergies (Unverified Allergy, Unknown, 08/04/24) Physical Exam: GEN: Awake, alert, oriented in person, time and place, and in no acute distress. HEENT: No sinus tenderness. Tympanic membranes were not examined. No rhinorrhea. Oral pharyngeal mucosa is pink, CHEST: Inspection, palpation of the chest were unremarkable. Lung auscultation revealed normal breath sounds bilaterally. CARDIAC: Heart sounds are regular. ABD: Soft, tender to epigastric region and not distended. No peritoneal signs on palpation. No organomegaly. Normal bowel sounds. EXT: No cyanosis or clubbing. No edema. SKIN: Intact. No rashes. JOINTS: No evidence of synovitis or acute arthritis. NEURO: Alert and oriented to name, place and person. Cranial nerve examination is unremarkable. No focal motor deficits. Normal speech. Strength is normal. Vital Sign (Last 24 Hours) 05/15/25 05/16/25 19:58 04:00 Temp 98.4 Pulse 64 Resp 20 B/P (MAP) 125/61 Pulse Ox 96 O2 Delivery Room Air O2 Flow Rate 0 FiO2 21 Intake & Output (last 24hrs) 05/15/25 05/15/25 05/16/25 15:00 23:00 07:00 Intake Total 0 ml 100.0 ml Balance 0 ml 100.0 ml Laboratory: [ ] Laboratory: Test 05/16/25 04:50 05/15/25 06:04 05/15/25 04:55 05/14/25 10:24 Range/Units White Blood Count 11.9 #H 4.8-10.8 K/uL Red Blood Count 4.50 4.00-5.50 MIL/uL Hemoglobin 12.2 12.0-16.0 g/dL Hematocrit 37.2 36-48 % Mean Corpuscular Volume 82.7 79-99 fL Mean Corpuscular Hemoglobin 27.1 27.0-33.0 pg Mean Corpuscular Hemoglobin Concent 32.8 32.0-36.0 g/dL Red Cell Distribution Width 14.2 11.0-15.5 % Platelet Count 296 130-400 K/uL Mean Platelet Volume 10.4 7.5-10.5 fL Immature Granulocyte % (Auto) 0.3 0-1 % Neutrophils (%) (Auto) 59.4 40.0-77.0 % Lymphocytes (%) (Auto) 32.2 21.0-51.0 % Monocytes (%) (Auto) 7.2 3.0-13.0 % Eosinophils (%) (Auto) 0.6 0.0-8.0 % Basophils (%) (Auto) 0.3 0.0-5.0 % Neutrophils # (Auto) 7.1 1.8-7.7 K/uL Lymphocytes # (Auto) 3.8 1.0-4.8 K/uL Monocytes # (Auto) 0.9 0.1-1.0 K/uL Eosinophils # (Auto) 0.07 0.00-0.70 K/uL Basophils # (Auto) 0.03 0.00-0.20 K/uL Absolute Immature Granulocyte (auto 0.04 0-1 K/uL Nucleated Red Blood Cells 0.0 0.0-0.19 % Sodium Level 139 136-145 mmol/L Potassium Level 3.1 L 3.5-5.1 mmol/L Chloride Level 103 101-111 mmol/L Carbon Dioxide Level 27 21-32 mmol/L Blood Urea Nitrogen 9 7-18 mg/dL Creatinine 0.7 0.5-1.0 mg/dL Glomerular Filtration Rate Calc 111 >90 mL/min Random Glucose 82 70-105 mg/dL Total Calcium 8.6 8.5-10.1 mg/dL Erythrocyte Sedimentation Rate 16 0-20 MM/HR Hemoglobin A1c 5.9 4.0-6.0 % Estimated Average Glucose (eAG) 123 70-126 mg/dL Phosphorus Level 2.9 2.5-4.9 mg/dL Magnesium Level 1.70 L 1.80-2.40 mg/dL C-Reactive Protein, Quantitative 2.20 0.5-3.0 mg/L Lipase 96 H 16-77 U/L Stool Lactoferrin (ADONIS) NEGATIVE NEGATIVE Urine Opiates Screen NEGATIVE NEGATIVE Urine Barbiturates Screen NEGATIVE NEGATIVE Urine Phencyclidine Screen NEGATIVE NEGATIVE Urine Amphetamines Screen NEGATIVE NEGATIVE Urine Benzodiazepines Screen NEGATIVE NEGATIVE Urine Cocaine Screen NEGATIVE NEGATIVE Urine Marijuana (THC) Screen POSITIVE H NEGATIVE Test 05/14/25 08:57 Range/Units Total Creatine Kinase 47 # 21-232 U/L Current Medications Medications (Trade) Dose Ordered Sig/Gisela Route PRN Reason Start Time Stop Time Status Last Admin Dose Admin Acetaminophen (TYLenol 650MG SUPPOSITORY) 650 mg Q6H PRN RC MILD PAIN (1-3) 05/14/25 04:30 06/13/25 04:29 Enoxaparin Sodium (Lovenox) 30 mg DAILY SQ 05/15/25 09:00 06/14/25 08:59 05/15/25 10:07 30 MG Famotidine (Pepcid 20mg Vial) 20 mg DAILY IV 05/14/25 09:00 05/15/25 11:11 DC 05/15/25 07:21 20 MG Hydralazine HCl (APRESOLine 20MG INJ) 10 mg Q6H PRN IV For:SBP above 160;DBP above 90 05/14/25 04:30 06/13/25 04:29 Hydromorphone HCl (DiLAUDid 0.5MG INJ) 0.5 mg Q6H PRN IVP SEVERE PAIN (7-10) 05/15/25 17:30 05/20/25 17:29 05/16/25 06:12 0.5 MG Lactated Ringer's 1,000 ml @ 125 mls/hr Q8H IV 05/14/25 04:30 06/13/25 04:29 05/16/25 02:46 125 MLS/HR Lactated Ringer's (Lactated Ringers 1000ml) 1,000 ml BOLUS STAT IV 05/14/25 01:19 05/14/25 01:20 DC 05/14/25 02:24 1,000 ML Lactated Ringer's (Lactated Ringers 1000ml) 1,000 ml BOLUS STAT IV 05/13/25 23:56 05/14/25 00:00 DC 05/14/25 00:13 1,000 ML Magnesium Sulfate 50 ml @ 0 mls/hr PROTOCOL PRN IV As needed 05/14/25 19:00 06/13/25 18:59 05/15/25 10:08 25 MLS/HR Morphine Sulfate (morPHINE 2MG SYG) 2 mg Q4H PRN IVP SEVERE PAIN (7-10) 05/14/25 04:30 05/15/25 17:43 DC 05/15/25 07:27 2 MG Ondansetron HCl (zoFRAN 4MG INJ) 4 mg Q6H PRN IV NAUSEA/VOMITING 05/14/25 04:30 06/13/25 04:29 05/16/25 06:12 4 MG Pantoprazole Sodium (PROTonix 40MG INJ) 40 mg DAILY IVP 05/16/25 09:00 06/15/25 08:59 Potassium Chloride 100 ml @ 50 mls/hr AD PRN IV POTASSIUM PROTOCOL 05/14/25 19:00 06/13/25 18:59 05/16/25 06:39 50 MLS/HR Diagnostics / Radiology: [COPY/PASTE HERE IF NO REPORTS PLEASE DELETE SECTION] Assessment: [ Abdominal pain Nausea and vomiting GERD Type 2 DM Marijuana use] Plan: [ Clear fluids today NPO after midnight Plan for EGD in am. Gi prophylaxis with Protonix 40mg IV bid Please call with questions, concerns, and change in clinical status Thank you for allowing us to be part of this patient's care] RADHA GARCIA NP May 16, 2025 08:11 Electronically Signed by: RADHA GARCIA NP05/16/25 [id number] Electronically Co-Signed by: Procedure(s): [place] [address] [id number] IMAGING REPORT Signed PATIENT: FARTUN BANUELOS MR#: [id number] : 1985 SEX: F AGE: 39 LOCATION: [facility] ORDER 7 STATUS: ADM IN REPORT#: [id number] SERVICE 5 REASON: SHORTNESS OF BREATH ORDERING PHYSICIAN: AMAYA DAVIS MD PROCEDURE: CXR1VW - CHEST 1VW EXAM: CR Chest, 1 View. CLINICAL HISTORY: SHORTNESS OF BREATH COMPARISON: None provided. FINDINGS: LUNGS: The lungs show no infiltrate or other acute finding. PLEURAL SPACES: No evidence of pleural effusion or pneumothorax. MEDIASTINUM: Cardiac size and mediastinal contours within normal limits. BONES: No aggressive appearing osseous lesion seen. IMPRESSION: No acute cardiopulmonary pathology is evident. /[place] DICTATED BY: KENDY WILLOUGHBY Jr., MD DATE: 05/15/251135 ELECTRONICALLY SIGNED BY: KENDY WILLOUGHBY Jr., MD DATE: 05/15/251135 [place] [id number] [address] IMAGING REPORT Signed PATIENT: FARTUN BANUELOS MR#: [id number] : 1985 SEX: F AGE: 39 LOCATION: [facility] ORDER 57 STATUS: ADM IN REPORT#: [id number] SERVICE 55 REASON: sbo ORDERING PHYSICIAN: MARIPOSA URIAS MD PROCEDURE: ABD PELWWO - CT ABDOMEN/PELVIS W/WO CONTRAS EXAM: CT Abdomen and Pelvis with and without IV contrast CLINICAL HISTORY: sbo TECHNIQUE: Axial computed tomography images of the abdomen and pelvis with and without intravenous contrast. CT scan performed according to ALARA. Automated exposure control used during exam. CONTRAST: with and without intravenous contrast. COMPARISON: CT images from August 04, 2024 FINDINGS: Lung bases are clear. Mild hepatomegaly; the right hepatic lobe measures up to 17.2 cm in the craniocaudal dimension. Hepatic steatosis. The gallbladder is surgically absent. Bilateral adrenal glands, spleen, and pancreas are within normal limits. Punctate nonobstructing calculus within the inferior pole of the right kidney. Kidneys are otherwise unremarkable. Bowel loops are normal in caliber without evidence of obstruction, ileus, or obvious bowel wall thickening. There is colonic diverticulosis without evidence for diverticulitis. The appendix is normal. Bladder and pelvic organs demonstrate appropriate CT appearances. There is no ascites or lymphadenopathy. Opacified abdominal and pelvic vessels are patent. There is no acute or suspicious osseous abnormality. IMPRESSION: 1. No acute intraabdominal or pelvic pathology. Please see above for additional details. /[place] DICTATED BY: KENDY WILLOUGHBY Jr., MD DATE: 05/14/252250 ELECTRONICALLY SIGNED BY: KENDY WILLOUGHBY Jr., MD DATE: 05/14/252250 EGD by Dr. Isrrael Graham : 1. normal esophagus 2. mucosal changes suspicious for gastroenteritis. biopsied 3. normal examined duodenum Assessment/Plan: DISCHARGE DIAGNOSIS : Acute noninfectious gastroenteritis, POA Pancreatitis resolved ( secondary to intractable nausea and vomiting) Cannabinoid hyperemesis syndrome, POA resolved Vomiting induced metabolic alkalosis, POA resolved Intractable nausea and vomiting, POA resolved Acute gastritis as per EGD s/p biopsy on 05.17.25 Hypokalemia, POA Colonic diverticulosis POA Hepatic steatosis POA Right nephrolithiasis POA Class II obesity (BMI 38.5 kg/m) ASSESSMENT Cannabinoid hyperemesis syndrome, POA resolved Acute noninfectious gastroenteritis, POA Vomiting induced metabolic alkalosis, POA resolved Intractable nausea and vomiting, POA resolved counselled on cessation of alcohol and marijuana urine toxicology is positive for marijuana patient symptoms resolved after three days of treating with multiple antiemetics and keeping her NPO continue antiemetics as indicated. consume potassium rich diet Hot showers are recommendedfor symptomatic relief. Acute gastritis as per EGD s/p biopsy on 05.17.25 follow up with gastroenterology as scheduled continue pantoprazole Discharge Instructions: DATE OF ADMISSION: 05.12.25 DATE OF DISCHARGE: 05.17.2025 DISPOSITION: Home CONDITION: Medically stable CONSULTANTS: Dr.Juan Graham FOLLOW UP APPOINTMENTS: Follow up with your primary care doctor in 2 to 3 days . Follow up with review engineer for EGD biopsy result SPECIFIC INSTRUCTIONS: Avoid alcohol and marijuana completely as they worsen gastrointestinal symptoms. * Advance diet slowly as tolerated. * Avoid high fat, fried meals * Drink plenty of fluids to maintain hydration. * Continue medications as prescribed * Use Pain medications only as directed PROCEDURES: EGD IMAGING: report attached to summary MICROBIOLOGY: report attached to summary HOME MEDICATIONS: see med rec NEW MEDICATIONS: See medication reconciliation EMERGENCY INSTRUCTIONS: The patient was instructed to present to the nearest Emergency department or call 911 once their symptoms will return or worsen. Home Medications: Discontinued Scripts Metronidazole (Metronidazole) 500 Mg Tablet, 1 TAB PO TID for 10 Days, #30 TAB 0 Refills Prov:TYLER WAGNER NP 08/04/24 Ciprofloxacin (Cipro) 500 Mg/5 Ml [facility].rec, 500 MG PO BID for 7 Days, #14 TAB 0 Refills Prov:TYLER WAGNER NP 08/04/24 Ondansetron (Ondansetron Odt) 4 Mg Tab.rapdis, 4 MG PO Q6HPRN PRN for nausea, #15 TAB 0 Refills Prov:TYLER WAGNER NP 08/04/24 Time spent arranging discharge: 1-30 minutes ATTESTATION BY PHYSICIAN I have seen and examined the patient. I reviewed the documentation, medical decision making, and treatment plan as noted by the resident provider above. I agree with the findings and plan of care. Aly Hernandez MD, LAKSHMI MD May 17, 2025 10:26 RICKY BURCH MD May 17, 2025 14:20
[2025-05-17] MEDS ORDERED: PANT40TA54 PO (13:53)
[2025-05-17] MEDS ORDERED: PHARMACY COMMUNICATION MISC SCH (14:00)
[2025-05-17] MEDS: PROMETHAZINE HCL 25 MG TABLET PO SCH (14:11)
[2025-05-17] MEDS ORDERED: ONDA-243 PO (14:18)
[2025-05-17] MEDS ORDERED: PROM12.513 PO (14:18)
[2025-05-17 15:12] LABS: CREATININE 0.6 mg/dL (0.5-1.0); GLOMERULAR FILTR. RATE CALC 116.0 mL/min (>90); GLUCOSE,RANDOM 94.0 mg/dL (70-105); SODIUM SERUM 141.0 mmol/L (136-145); UREA NITROGEN, BLOOD 8.0 mg/dL (7-18)
[2025-05-17] MEDS: CAPSAICIN CREAM 56.6GM TP SCH (15:23)
--- NOTE | 2025-05-17 15:25 | NUR ---
NAUSEA DR. RICKY BURCH MADE AWARE THAT PT CONTINUES WITH NAUSEA AND VOMITING. PER TO GIVE SL ZOFRAN SCHEDULED ORDER AND IF PT TOLERATES WITH DINNER TO CONTINUE WITH DISCHARGE.
[2025-05-17] MEDS: PoTASSium chloRIDE 20MEQ ER 20 MEQ ERTAB PO PRN (16:07)
--- NOTE | 2025-05-17 18:00 | NUR ---
TOLERATED DINNER PT TOLERATED DINNER. NO VOMITING. SOME NAUSEA. DR. RICKY BURCH MADE AWARE. PER TO CONTINUE WITH DISCHARGE ORDER.
--- NOTE | 2025-05-17 18:22 | NUR ---
DISCHARGE DC'D IV TO 20G LEFT AC AND 20G TO RAC. NO COMPLICATIONS. AWARE OF NEW PRESCRIPTIONS BEING SENT TO PERSONAL PHARMACY. HANDED TRIXAICIN CREAM TO PT. TEACHING GIVEN ON HOW TO APPLY AND TID. PT AWARE TO FOLLOW UP WITH DR. ERNST FOR BIOPSY RESULTS, PHONE NUMBER PROVIDED. PT ACKNOWLEDGED INFORMATION. ANSWERED ALL QUESTIONS AND CONCERNS.
[2025-05-17] MEDS ORDERED: CAPSAICIN CREAM 56.6GM TP SCH (21:00)
== END 2025-05-17 18:35 | disposition home or self-care (01) | DRG 391 ==
LOC: EDH 23:21 → EDHIP 05-14 04:06 → 3CH 05-14 05:20
PROVIDERS: ADMIT Internal Medicine; ATTEND Internal Medicine
PROC: 0DB68ZX Excision of Stomach, Via Natural or Artificial Opening Endoscopic, Diagnostic (ICD-10-PCS; principal; 2025-05-17)
DX: K52.9 Noninfective gastroenteritis and colitis, unspecified (principal); K85.90 Acute pancreatitis without necrosis or infection, unspecified; E87.3 Alkalosis; K29.00 Acute gastritis without bleeding; K57.30 Diverticulosis of large intestine without perforation or abscess without bleeding; K76.0 Fatty (change of) liver, not elsewhere classified; N20.0 Calculus of kidney; Z68.38 Body mass index [BMI] 38.0-38.9, adult; E66.812 Obesity, class 2; E11.9 Type 2 diabetes mellitus without complications; K21.9 Gastro-esophageal reflux disease without esophagitis; K31.89 Other diseases of stomach and duodenum; E87.6 Hypokalemia; E86.0 Dehydration; E83.42 Hypomagnesemia; Z51.5 Encounter for palliative care; Z90.49 Acquired absence of other specified parts of digestive tract; Z98.891 History of uterine scar from previous surgery
CPT/HCPCS: 36415; 43239; 71045; 74178; 80048; 80053; 80305; 81001; 81025; 82550; 83036; 83605; 83630; 83690; 83735; 84100; 84132; 85025; 85651; 86140; 87324; 87338; 87507; 93005; 99285; G0378; J0500; J1171; J1650; J2270; J2405; J2470; J2550; J2704; J3475; J3480; J3490; J7120; Q0169; Q9967; A4215; A4222; A4223; A4620